=== PATIENT | male | born 1955 | race Caucasian/White ===

== ENCOUNTER 2016-10-28 12:58 | Inpatient (IN) | payer OTHER, SELFPAY ==
[~2016-10-28] VITALS: Ht 185.4 cm; Wt 171.0 kg
--- NOTE | ~2016-10-28 | H ---
[facility] [place] [address] HISTORY AND PHYSICAL Name: MICAH HENNESSY Room #: 170-2 ADM IN M.R.#: [id number] Admission: 10/28/16 Attend Phys: Andreia Bradford MD Discharge: Date of : 53 Report #: [id number] THIS REPORT FOR: //name// CC: Nitin Bradford PRIMARY CARE DOCTOR: Nitin Mcnally MD. CHIEF COMPLAINT: Shortness of breath. HISTORY OF PRESENT ILLNESS: The patient is a 61-year-old male with a history of severe morbid obesity, obstructive sleep apnea on CPAP, status post left nephrectomy, secondary to renal cell carcinoma with stage 4 chronic kidney disease, diabetes type 2 with triopathy, presented to the ER secondary to shortness of breath. He indicates that he has been dealing with this for about a month and a half now. He completed a course of Zithromax early on, when he first developed symptoms and then completed a course of Levaquin, about 2 weeks ago. He has had ongoing shortness of breath, especially dyspnea on exertion. He denies any overt chest pain. He denies any prior history of cardiac problems. He denies any significant fever or chills, but he does have night sweats. He also reports that he has not been able to bring out much sputum. He does not smoke. Workup here in the ER included chest x-ray that showed early pneumonia. I was asked to admit him for further management and care. He is currently satting in the low 90s on room air. He denies any other complaints. He does have chronic leg swelling and has had multiple venous Dopplers that are all negative. PAST MEDICAL HISTORY: As stated, obstructive sleep apnea on CPAP, severe morbid obesity, type 2 diabetes, history of renal cell carcinoma, status post left nephrectomy with chronic kidney disease stage 4, followed by Dr. Leavitt, hypertension, history of cor pulmonale. PAST SURGICAL HISTORY: He has had left nephrectomy, vasectomy, tonsillectomy, and foot surgery. SOCIAL HISTORY: He is . 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 Never smoked, drinks very infrequently. FAMILY HISTORY: Dad at 73 from diabetes, mom of uterine cancer. REVIEW OF SYSTEMS: A 14-point review of system was conducted. All negative except for above. CURRENT MEDICATIONS: Include K-Dur 20 mEq daily, Lipitor 40 mg daily, Tylenol p.r.n., sliding scale insulin. He is also on Humulin R 500, 25 during the day [address] [address] HISTORY AND PHYSICAL Name: MICAH HENNESSY Room #: 170-2 ADM IN .R.#: [id number] Admission: 10/28/16 Attend Phys: Andreia Bradford MD Discharge: Date of : 53 Report #: [id number] and 8 at night, torsemide 40 mg daily, Norvasc 10 mg daily, Coreg 25 mg b.i.d., fish oil 1 daily, Zestril 40 mg daily, Regranex, spironolactone 50 mg daily, Centrum Silver one daily, vitamin D 2000 units daily, and multivitamin daily. PHYSICAL EXAMINATION: VITAL SIGNS: Temperature of 98, pulse of 81, blood pressure of 151/86, O2 sat 93% on room air, when he initially came in, his pressure was 206/106, and he is 93% on room air. GENERAL: He is awake, alert, and answering questions appropriately, in no acute respiratory distress. HEENT: Normocephalic and atraumatic. Pupils are equal. NECK: Supple. CARDIOVASCULAR: Regular rate and rhythm. No murmurs. LUNGS: Clear to auscultation bilaterally. Decreased at the bases. ABDOMEN: Morbidly obese. Soft, nondistended, and nontender. EXTREMITIES: He has large legs, appreciable edema. LABORATORY AND TESTING: Chest x-ray showed a small soft tissue nodules, identified on prior CT, are not well demonstrated on plain films, atelectasis, and early pneumonia had developed in the bases. Cardiomegaly still noted. CBC showed no significant abnormalities with white count of 6.5, platelets 115. BMP currently pending. Previously, his creatinine was 3.2 in August of 2014, but it has been anywhere from the mid 1s-3s. ASSESSMENT AND PLAN: 1. Recurrent versus persistent pneumonia. We will get a CT of his chest. Continue ceftriaxone and Zithromax for now. Check sputum and blood cultures. Consider ID consult depending on the results of his CT. 2. Dyspnea on exertion, likely related to above. However, with his risk factors, we will also rule out cardiac etiology with enzymes, possibly an echo and a BMP. 3. Severe morbid obesity and obstructive sleep apnea. The patient would benefit from outpatient weight loss. We will continue CPAP. 4. Chronic kidney disease stage 4. We will avoid any nephrotoxins. Await the results of his BMP. 5. Thrombocytosis, likely secondary to his acute illness and possibly recent antibiotic use. We will monitor. 6. Diabetes. We will continue home meds and sliding scale insulin. 7. Prior history of renal cell carcinoma, status post nephrectomy. 8. Hypertension. Continue home meds with holding parameters. By: [id number] MD pal Corea
--- NOTE | ~2016-10-28 | 2DMMODE ---
[facility] [place] [address] 2 D/M-MODE ECHOCARDIOGRAM Name: MICAH HENNESSY Room #: 424-P [facility] IN [facility].#: [id number] Admission: 10/28/16 Attend Phys: Andreia Bradford MD Discharge: Date of : 53 Date of Service: 10/30/16 0945 Report #: [id number] THIS REPORT FOR: //name// APPROVED REPORT Study performed: 10/30/2016 08:23:03 EXAM: Comprehensive 2D, Doppler, and color-flow Echocardiogram Patient Location: Bedside Blood Pressure: 152/91 mmHg HR: 78 bpm Other Information Study Quality: Fair Indications Diabetes Hypertension/HDD Congestive Heart Failure Echo Enhancing Agent Indication: Endocardial border delineation Agent/Amount Used: Definity 2 cc Comments: Morbid obesity. Aortic Valve AoV Peak Trey.: 1.07 m/s AO Peak Gr.: 4.56 mmHg LV Max P.59 mmHg LV Max: 0.80 m/s Mitral Valve MV PHT: 43.85 ms MV E Max Trey.: 1.00 m/s E/A Ratio: 1.2 MV A Trey.: 0.85 m/s MV Decel. Time: 151.20 ms Pulmonary Valve PV Peak Trey.: 0.74 m/s PV Peak Gr.: 2.19 mmHg Left Ventricle The left ventricle appears normal size. There is global hypokinesis [facility] [address] [place] [address] 2 D/M-MODE ECHOCARDIOGRAM Name: MICAH HENNESSY Room #: 424-P ADM IN M.R.#: [id number] Admission: 10/28/16 Attend Phys: Andreia Bradford MD Discharge: Date of : 53 Date of Service: 10/30/16 0945 Report #: [id number] of the left ventricle.Definity was required. There is normal left ventricular wall thickness. Left ventricular systolic function is moderately decreased. No left ventricular thrombus noted. LVEF is 40% Grade III - reversible restrictive diastolic dysfunction. Right Ventricle Right ventricle is moderately dilated. Right ventricular systolic function is moderately reduced. Atria Left atrium is moderately dilated. The right atrium size is normal. Aortic Valve The aortic valve is not well visualized. No aortic regurgitation is present. There is no aortic valvular stenosis. Mitral Valve Mitral valve is not well visualized. Mild mitral regurgitation. Tricuspid Valve Tricuspid valve is not well visualized. There is no tricuspid valve regurgitation noted. Pulmonic Valve Pulmonic valve is not well visualized. There is no pulmonic valvular regurgitation. Great Vessels The aortic root is normal in size. IVC is not well visualized. Pericardium There is no pericardial effusion. <Conclusion> There is global hypokinesis of the left ventricle.However this study has limited endocardial definition LVEF is 40%. Grade III - reversible restrictive diastolic dysfunction. Right ventricular systolic function is moderately reduced. Right ventricle is moderately dilated. Left atrium is moderately dilated. No aortic regurgitation is present. [facility] [address] [place] [address] 2 D/M-MODE ECHOCARDIOGRAM Name: HENNESSYMICAH GABRIELLE Room #: 424-P [facility] IN ..#: [id number] Admission: 10/28/16 Attend Phys: Andreia Bradford MD Discharge: Date of : 53 Date of Service: 10/30/16944 Report #: [id number] There is no aortic valvular stenosis. Mild mitral regurgitation. <ELECTRONICALLY SIGNED> By: Truman Barney MD, FACC 10/30/1645 4 4 Truman Barney MD, FACC /INF
--- NOTE | ~2016-10-28 | EKG ---
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
--- NOTE | ~2016-10-28 | HC ---
[facility] [place] [address] CONSULTATION Name: MICAH HENNESSY Room #: 424-P [facility] IN M.R.#: [id number] Admission: 10/28/16 Attend Phys: Andreia Bradford MD Discharge: Date of : 53 Report #: [id number] THIS REPORT FOR: //name// CC: Nitin Bradford INFECTIOUS DISEASE CONSULTATION REASON FOR CONSULTATION: I was asked to evaluate concerning possible pneumonia. HISTORY OF PRESENT ILLNESS: The patient was a 61-year-old with morbid obesity, obstructive sleep apnea and a history of renal cell carcinoma, status post left nephrostomy in addition to diabetes. He has had progressive shortness of breath over the last 6 weeks. He had a trial of azithromycin, followed by Levaquin without improvement. No fever, chills or sweats. No cough or sputum production. Most of his dyspnea is on exertion with some orthopnea. He has chronic lower extremity edema. No chest pain. ALLERGIES: No known medication allergies. MEDICATIONS: As noted on his OCT. Now, he received one dose of doxycycline and one dose of ceftriaxone. PAST MEDICAL HISTORY: In addition to the above, chronic kidney disease, hypertension, cor pulmonale, foot surgery with an amputation of the distal toe on the right foot, vasectomy, tonsillectomy and left nephrectomy. FAMILY HISTORY: Noncontributory. 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 Nonsmoker. No significant alcohol intake. REVIEW OF SYSTEMS: As noted above, with no additions including no GI or complaints. PHYSICAL EXAMINATION: VITAL SIGNS: He is afebrile and hemodynamically stable. GENERAL: He is alert and cooperative and pleasant, with nasal CPAP in place. He has a peripheral IV. He is morbidly obese. HEENT: Unremarkable. NECK: Supple. No adenopathy. LUNGS: Decreased breath sounds bilaterally in the chest. HEART: Regular, without murmur. ABDOMEN: Obese, soft and nontender. No hepatosplenomegaly or mass. EXTREMITIES: With 2+ edema in the lower extremities, with changes of chronic venous stasis disease. [facility] [address] [place] [address] CONSULTATION Name: HENNESSYMICAHANTONETTE ANTHONY Room #: 424-P [facility] IN M.R.#: [id number] Admission: 10/28/16 Attend Phys: Andreia Bradford MD Discharge: Date of : 53 Report #: [id number] LABORATORY STUDIES: Sodium 144, potassium 3.8, bicarbonate 28 and creatinine 2.6. CPK 91. Troponin 0.26. BNP 12,000. Hemoglobin 14, white count 7.7, platelet count 130,000 with 65% segs and 18% lymphs. Blood cultures are negative. CT scan of the chest showed atelectasis in the right middle and lower lobe, small effusions, calcified granulomas and mild increase in his mediastinal nodes. IMPRESSION: A 61-year-old with obstructive sleep apnea, obesity and dyspnea, I suspect most likely cardiac in origin in addition to his obstructive sleep apnea. PLAN: We would recommend stopping his antibiotics and obtaining echocardiogram and cardiology followup. <ELECTRONICALLY SIGNED> By: Inocencio Zuniga MD 10/29/16 1625 1430 1449 Inocencio Zuniga MD /nt
--- NOTE | ~2016-10-28 | HC ---
[facility] [place] [address] CONSULTATION Name: MICAH HENNESSY Room #: 424- ADM IN M.R.#: [id number] Admission: 10/28/16 Attend Phys: Andreia Bradford MD Discharge: Date of : 53 Report #: [id number] THIS REPORT FOR: //name// CC: Nitin Bradford DATE OF SERVICE: 10/30/2016 DATE OF SERVICE: 10/30/2016 PRIMARY MANAGER TALENT: Gianna Brewer PRIMARY CARE DOCTOR: Nitin Mcnally M.D. CHIEF COMPLAINT: Shortness of breath. HISTORY OF PRESENT ILLNESS: The patient is a 61-year-old morbidly obese male with history of chronic kidney disease, presented with 1-2 weeks of increasing shortness of breath and weight gain, fluid retention. He has had a mild cough. He was admitted for both pneumonia and findings compatible with congestive heart failure. Clinically, he denies chest pain or pressure. He denies palpitations. He presents in sinus rhythm with a complete right bundle branch block. He has positive orthopnea and positive PND. He has severe sleep apnea and uses CPAP. He does not require oxygen during the daytime. He has no documented history of tobaccoism or severe obstructive lung disease. He has no fevers or chills, but has had a persistent cough over the last 2-3 weeks as noted above. He did have a CT scan of the chest, which demonstrated possible pneumonia and has been on antibiotics overnight. Overall with this and torsemide for diuresis, he has noted improvement in the shortness of breath. PAST MEDICAL HISTORY: He is followed by Dr. Brewer for what sounds like congestive heart failure. He has a history of chronic kidney disease, status post left-sided nephrectomy stage [address] Leavitt, hypertension, cor pulmonale, morbid obesity and sleep apnea. He is also a insulin requiring [facility] [address] [place] [address] CONSULTATION Name: MINOOMICAHANTONETTE ANTHONY Room #: 424-P [facility] IN [facility]#: [id number] Admission: 10/28/16 Attend Phys: Andreia Bradford MD Discharge: Date of : 53 Report #: [id number]. PAST SURGICAL HISTORY: Prior left nephrectomy, vasectomy, foot surgery, toe amputation for infection. SOCIAL HISTORY: He is . There is no tobacco or ethanol history. 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 FAMILY HISTORY: His father of complications, heart disease and diabetes. REVIEW OF SYSTEMS: GENERAL: Denies any fevers or chills. GASTROINTESTINAL: No nausea or vomiting, abdominal pain. CARDIOVASCULAR: No chest pain. Positive orthopnea, positive PND, positive dyspnea with exertion. Positive edema. No palpitations. NEUROLOGIC: No syncope or seizures. EYES: Denies any blurred vision or loss of vision. THROAT: Denies any dysphagia. SKIN: No rashes. Positive edema. EYES: Denies any blurry vision or loss of vision. HEMATOLOGIC: No anemia or bleeding disorders. ALLERGIES: No known drug allergies. PHYSICAL EXAMINATION: VITAL SIGNS: Blood pressure was 161/96. Pulse is in the 80s and in sinus rhythm and O2 sats 94% on room air. GENERAL: This is a morbidly obese white male, his weight 171 kilograms. In general, he is pleasant, in no apparent distress. EYES: EOMs intact. No facial asymmetry. Sclerae anicteric. NECK: Supple. No jugular venous distention. CARDIOVASCULAR: Regular heart tones are distant. ____ rub or gallop. LUNGS: There are bilateral expiratory wheezes. I cannot hear rales. ABDOMEN: Soft, morbidly obese, nontender. Positively distended. EXTREMITIES: There is 2+ pretibial edema to the knees. NEUROLOGIC: There are no focal deficits. SKIN: Warm and dry. PSYCHIATRIC: The patient has appropriate mood and affect. Electrocardiogram demonstrates sinus rhythm with a right bundle branch block, complete. LABORATORY DATA: Hemoglobin is 14.0, white blood count 7.7, platelet count 130,000. His troponin I is 0.26, 0.24 and 0.27. His NT-proBNP is 12,058, hemoglobin is 14.0. [address] [address] CONSULTATION Name: MICAH HENNESSY Room #: 424-P [facility] IN M.R.#: [id number] Admission: 10/28/16 Attend Phys: Andreia Bradford MD Discharge: Date of : 53 Report #: [id number] IMPRESSION: 1. Acute congestive heart failure. He does have an elevated BNP level with significant findings for at least right-sided heart failure, possibly left-sided heart failure. His chest x-ray and CTs are somewhat less definitive for systolic dysfunction. We will obtain records from Dr. Brewer. He will continue with diuretic therapy and we will adjust his blood pressure medications. 2. Abnormal troponin. I suspect this is related to his chronic kidney disease and possibly congestive heart failure. Seemingly he does not have findings for an acute coronary syndrome. We will follow this clinically. 3. Chronic kidney disease. We will monitor renal function closely while on present diuretic therapy. 4. Hypertension. He is already on a maximal dose of carvedilol. His creatinine is too high for an ARB at this point in time. I will add hydralazine. 5. Pneumonia. He is on broad spectrum antibiotics. INPATIENT MEDICATIONS: Which include ceftriaxone, doxycycline, carvedilol 25 mg p.o. b.i.d., atorvastatin 40 mg daily, torsemide 40 mg daily, fish oil, enoxaparin 40 mg subcutaneous daily, Norvasc 10 mg daily, Aldactone 50 mg daily, potassium chloride 20 mEq daily. By: 1539 0046 Truman Barney MD, [facility] /nt
[~2016-10-28 12:58] MED LIST: ALDACTONE50 MG PO; AMBEREN PO; AMLODIPINE BESY10 MG PO; ASPIRIN EC81 M1 PO; CARVEDILOL25 MG PO; CENTRUM SILVER1 EAC4 PO; CLORPRES 0.1-11 EACH PO; COLACE 100 MG100 MG PO; COMBIVENT INH; ENDUR-ACIN500 MG PO; FISH OIL 1,0001 EAC5 PO; GLUCOPHAGE XR500 MG PO; HYDRALAZINE 5050 MG PO; HYDROCHLOROTHIA25 M2 PO; INTUNIV3 MG PO; KEFLEX500 MG PO; LANTUS SC; LASIX 80 MG TAB80 M1 PO; LEVEMIR SUBQ; LIPITOR 20 MG T20 M1 PO; LISINOPRIL PO; MULTIVITAMINS PO; NOVOLOG100 UNIT/1 SQ; NOVOLOG100 UNIT/1 SUBQ; POTASSIUM20 PO; REGRANEX1 TUBE; SIMVASTATIN40 MG PO; SPIRONOLACTONE25 M1 PO; TAMSULOSIN HCL0.4 MG PO; TORSEMIDE20 MG; TORSEMIDE20 MG PO; TYLENOL325 MG PO; VIAGRA50 MG PO; VICODIN PO; VITAMIN D2000 UNIT PO; VITAMIN E400 UNIT PO; VITAMINC500 PO; ZESTRIL20 MG PO; ZESTRIL40 MG PO; ZINC CHELATE50 MG PO
[2016-10-28 12:59] VITALS: BP 206/106
[2016-10-28] MEDS ORDERED: LEVAQUIN 750 M750 MG PO (13:37)
[2016-10-28] MEDS ORDERED: K-DUR 20 MEQ T20 MEQ PO (13:37)
[2016-10-28] MEDS ORDERED: ATORVASTATIN CA40 MG PO (13:37)
[2016-10-28] MEDS ORDERED: HUMALOG100 UNIT/1 SUBQ (13:43)
[2016-10-28 14:28] LABS: ABSOLUTE NEUTROPHILS 4.6 thou/uL (1.4-8.2); BASOPHILS 0.8 % (0.0-2.0); EOSINOPHILS 4.5 % (0.0-3.0); HEMATOCRIT 43.1 % (42.0-52.0); HEMOGLOBIN 14.2 gm/dL (14.0-18.0); LYMPHOCYTES 14.8 % (24.0-44.0); MONOCYTES 8.8 % (1.0-8.0); PLATELET COUNT 115 thou/uL (150-400); POLYS 71.1 % (36.0-66.0); RBC 4.59 mil/uL (4.50-6.00); RDW 14.8 % (10.5-14.5); WBC 6.5 thou/uL (4.0-11.0)
[2016-10-28 14:30] LABS: MANUAL DIFF NO
[2016-10-28 16:17] LABS: CREATININE 2.5 mg/dL (0.6-1.3); TROPONIN-I 0.27 ng/mL (<0.04-0.07)
[2016-10-28] MEDS ORDERED: HUMULINU500 SUBQ (18:16)
[2016-10-28 18:24] VITALS: BP 158/111
[2016-10-28 20:46] LABS: TROPONIN-I 0.24 ng/mL (<0.04-0.07)
[2016-10-28 21:00] VITALS: BP 156/104
[2016-10-29 03:01] LABS: ABSOLUTE NEUTROPHILS 5.1 thou/uL (1.4-8.2); BASOPHILS 0.4 % (0.0-2.0); EOSINOPHILS 4.6 % (0.0-3.0); HEMATOCRIT 41.9 % (42.0-52.0); MCH 31.1 pg (26.0-34.0); MCHC 33.4 g/dL (28.0-37.0); MONOCYTES 11.2 % (1.0-8.0); PLATELET COUNT 130 thou/uL (150-400); POLYS 65.8 % (36.0-66.0); RDW 14.3 % (10.5-14.5); WBC 7.7 thou/uL (4.0-11.0)
[2016-10-29 03:18] LABS: CREATININE 2.6 mg/dL (0.6-1.3); POTASSIUM 3.8 mmol/L (3.5-5.1); TROPONIN-I 0.26 ng/mL (<0.04-0.07)
[2016-10-29 03:25] LABS: MANUAL DIFF NO
[2016-10-29 04:30] VITALS: BP 146/73; BP 158/66
[2016-10-29 08:26] VITALS: BP 161/96
[2016-10-29 16:20] VITALS: BP 143/84
[2016-10-29 20:00] VITALS: BP 159/98
[2016-10-30 04:00] VITALS: BP 141/74
[2016-10-30 07:38] VITALS: BP 152/91
[2016-10-30 12:16] LABS: CALCIUM 9.1 mg/dL (8.5-10.1); CREATININE 2.5 mg/dL (0.6-1.3); POTASSIUM 4.3 mmol/L (3.5-5.1)
[2016-10-30 15:22] VITALS: BP 154/96
[2016-10-30 19:51] VITALS: BP 120/79
[2016-10-31 04:04] VITALS: BP 128/71
[2016-10-31 07:33] VITALS: BP 143/71
[2016-10-31 16:27] VITALS: BP 123/68
[2016-10-31 20:00] VITALS: BP 145/89
[2016-11-01 04:00] VITALS: BP 140/70
[2016-11-01 08:05] VITALS: BP 158/85
[2016-11-01 10:36] LABS: HEMATOCRIT 44.9 % (42.0-52.0); MCHC 33.3 g/dL (28.0-37.0); RBC 4.83 mil/uL (4.50-6.00); RDW 14.7 % (10.5-14.5); WBC 5.9 thou/uL (4.0-11.0)
[2016-11-01 10:48] LABS: CALCIUM 9.2 mg/dL (8.5-10.1); CREATININE 2.8 mg/dL (0.6-1.3); POTASSIUM 4.1 mmol/L (3.5-5.1)
[2016-11-01 16:00] VITALS: BP 125/73
[2016-11-01 21:30] VITALS: BP 120/65
[2016-11-02 05:30] VITALS: BP 123/62
[2016-11-02 06:55] LABS: HEMATOCRIT 43.1 % (42.0-52.0); HEMOGLOBIN 14.4 gm/dL (14.0-18.0); MCH 31.3 pg (26.0-34.0); MCHC 33.5 g/dL (28.0-37.0); MCV 93.4 fL (80.0-100.0); RBC 4.61 mil/uL (4.50-6.00); RDW 14.8 % (10.5-14.5); WBC 5.4 thou/uL (4.0-11.0)
[2016-11-02 07:16] LABS: CALCIUM 9.2 mg/dL (8.5-10.1); CREATININE 2.8 mg/dL (0.6-1.3); POTASSIUM 3.9 mmol/L (3.5-5.1)
[2016-11-02 08:20] VITALS: BP 107/55
[2016-11-02 12:00] VITALS: BP 132/74
[2016-11-02 16:00] VITALS: BP 142/95
[2016-11-02 16:30] VITALS: BP 132/74
[2016-11-02 17:38] VITALS: BP 132/74
== END 2016-11-02 17:24 | disposition home or self-care (01) | DRG 291 ==
LOC: ER 12:58 → 4E 15:26 → EROBS 15:26 → 4E 18:01
PROVIDERS: Emergency Medicine; Family Medicine; Internal Medicine Cardiovascular Disease
DX: I13.0 Hypertensive heart and chronic kidney disease with heart failure and stage 1 through stage 4 chronic kidney disease, or unspecified chronic kidney disease (principal); I50.41 Acute combined systolic (congestive) and diastolic (congestive) heart failure; N18.4 Chronic kidney disease, stage 4 (severe); Z68.42 Body mass index [BMI] 45.0-49.9, adult; E78.5 Hyperlipidemia, unspecified; E66.01 Morbid (severe) obesity due to excess calories; D47.3 Essential (hemorrhagic) thrombocythemia; E11.22 Type 2 diabetes mellitus with diabetic chronic kidney disease; G47.33 Obstructive sleep apnea (adult) (pediatric); Z89.421 Acquired absence of other right toe(s); Z98.52 Vasectomy status; Z85.528 Personal history of other malignant neoplasm of kidney; Z90.5 Acquired absence of kidney; Z80.59 Family history of malignant neoplasm of other urinary tract organ; Z83.3 Family history of diabetes mellitus; Z82.49 Family history of ischemic heart disease and other diseases of the circulatory system; Z79.899 Other long term (current) drug therapy
CPT/HCPCS: 10183

== ENCOUNTER 2017-01-14 15:34 | Inpatient (IN) | payer OTHER, SELFPAY ==
[~2017-01-14] VITALS: Ht 175.3 cm; Wt 177.4 kg
--- NOTE | ~2017-01-14 | HC ---
[facility] [place] [address] CONSULTATION Name: MICAH HENNESSY Room #: 311-P [facility] IN M.R.#: [id number] Admission: 01/14/17 Attend Phys: Dora Perez MD Discharge: Date of : 53 Report #: [id number] THIS REPORT FOR: //name// CC: Nitin Perez DATE OF SERVICE: 01/15/2017 REASON FOR CONSULTATION: Edema in the setting of morbid obesity. HISTORY OF PRESENT ILLNESS: This 61-year-old male is followed by Dr. Rodrigo Leavitt in our office. I have not previously seen him. He has a complicated medical history which includes a previous nephrectomy in 2010 for renal cell carcinoma. His left kidney was removed at that time and he was found to have contained disease. He did not receive any chemotherapy or followup radiation therapy to his knowledge. The patient has longstanding diabetes mellitus and hypertension. He has been followed regularly by Dr. Leavitt in the office for his chronic kidney disease. The patient reports that he has had increasing fluid retention and shortness of breath. He has known obstructive sleep apnea and uses CPAP regularly. He denies fevers, chills, sweats or other constitutional complaints. PAST MEDICAL HISTORY: Otherwise remarkable for hypertension, cardiomyopathy, diabetes mellitus. MEDICATIONS ON ADMISSION: Include potassium, Lipitor, Humulin, carvedilol, torsemide, fish oil, Zestril, Aldactone, Centrum Silver and vitamin D. FAMILY HISTORY: Remarkable for diabetes mellitus and hypertension. PERSONAL AND SOCIAL HISTORY: The patient does not smoke, use alcohol or have any history of substance abuse. He is able to maintain his mobility at home with his . REVIEW OF SYSTEMS: Remarkable as described in the history of present illness. PHYSICAL EXAMINATION: GENERAL: Reveals a morbidly obese male in no acute distress. VITAL SIGNS: Blood pressure 154/65, temperature 98.1, pulse 73, respirations 21. SKIN: Warm and dry. There is 2+ edema of the lower extremities bilaterally. Edema extends to the level of the thighs. There is no gross leakage. There is no evidence of cellulitis. HEENT: The head is normocephalic and atraumatic. The sclerae are white and [facility] [address] [place] [address] CONSULTATION Name: MICAH HENNESSY Room #: 311-P [facility] IN M.R.#: [id number] Admission: 01/14/17 Attend Phys: Dora Perez MD Discharge: Date of : 53 Report #: [id number] conjunctivae are not injected. The pharynx is benign. NECK: Supple. LUNGS: [place] are grossly clear to percussion and auscultation, though breath sounds are distant. HEART: Sounds are difficult to appreciate due to obesity. There is no gross murmur. ABDOMEN: Markedly obese, soft and nontender. NEUROLOGIC: Reveals the patient to be alert and cooperative with a nonfocal exam. LABORATORY STUDIES: Available at the time of consultation include sodium 146, potassium 3.5, chloride 104, CO2 33, BUN 35, creatinine 2.6, glucose 146. White blood cell count 6600, hemoglobin 14.9, hematocrit 44.7. No urinalysis is available. ASSESSMENT: 1. Morbid obesity in this patient with diabetes mellitus, solitary kidney status, chronic kidney disease and increasing edema. I am primarily worried about the development of nephrotic syndrome and anasarca related to his progressive diabetic nephropathy and a single kidney situation. We will obtain renal screening studies including urinalysis, urine for protein creatinine and serum albumin level. We will continue current diuretic regimen. 2. Obstructive sleep apnea with cor pulmonale. 3. Morbid obesity. 4. Anemia of chronic kidney disease. PLAN: The patient will need care for renal followup and balancing of his diuretic regimen in view of his limited renal reserve. I will confer with Dr. Leavitt's office records and await further laboratory test again as described. Please see orders. <ELECTRONICALLY SIGNED> By: Ruddy Guaman MD 01/19/17 0641 1512 1821 Ruddy Guaman MD /nt
--- NOTE | ~2017-01-14 | HC ---
[facility] [place] [address] CONSULTATION Name: MICAH HENNESSY Room #: 311-P ADM IN M.R.#: [id number] Admission: 01/14/17 Attend Phys: Dora Perez MD Discharge: Date of : 53 Report #: [id number] THIS REPORT FOR: //name// CC: Nitin Perez Patient's Chart DATE OF SERVICE: 01/15/2017 HISTORY OF PRESENT ILLNESS: The patient is a 61-year-old white male who I was asked to see in the hospital today because of all his edema. The patient has had multiple hospitalizations here at [facility]. He actually saw Dr. Bowling with the cardiology service back in 2010 with fluid overload. The patient has a history of morbid obesity and sleep apnea. Echocardiogram showed left ventricular systolic function at the lower limits normal. He did have evidence of moderate pulmonary hypertension. He was actually admitted here to [facility] in October of this year with shortness of breath. At that time, he was seen by Dr. Barney. He is felt to have diastolic heart failure. He was just discharged 2 months ago. His echocardiogram in October showed an ejection fraction estimated at 40% with dilated right ventricle, left atrium, mild aortic insufficiency, but no significant tricuspid regurgitation. The patient notes that he is not very active because of his large size. He is 6 feet 1 inches and weighs over 400 pounds. Recently, he has had increasing shortness of breath and edema. He was brought to the hospital yesterday and admitted. I was asked to see him for further evaluation and treatment. He denies any history of myocardial infarction or chest pain. He has had no fever or cough. He has occasional flutter in his chest, but no syncope. PAST MEDICAL HISTORY: Significant for amputation of toe because of nonhealing ulcer. He apparently had malignancy of his kidney removed in the past. He has a history of hypertension and diabetes. MEDICATIONS: Consists of potassium, Lipitor, insulin, carvedilol, torsemide, lisinopril, spironolactone. ALLERGIES: He has no known drug allergies. FAMILY HISTORY: Negative for heart disease. SOCIAL HISTORY: He is . He lives with his in [place], [place]. 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 No history of smoking or alcohol abuse. REVIEW OF SYSTEMS: He has had no history of stroke. He does have sleep apnea, [address] [address] CONSULTATION Name: MICAH HENNESSY Room #: 311-P [facility] IN ..#: [id number] Admission: 01/14/17 Attend Phys: Dora Perez MD Discharge: Date of : 53 Report #: [id number] uses CPAP. No history of peptic ulcer disease, liver disease. He has chronic kidney disease. He has renal cell carcinoma. PHYSICAL EXAMINATION: GENERAL: Revealed an obese, middle-aged male lying in bed. He appeared in no distress. VITAL SIGNS: He had a blood pressure of 150/90, pulse 70, he was afebrile. HEENT: He was anicteric. Conjunctivae are pink. Mucous membranes moist. NECK: Neck vein could not be assessed due to obesity. CHEST: Revealed decreased breath sounds bilaterally. CARDIOVASCULAR: Distant heart sounds. No significant murmur. ABDOMEN: Obese. EXTREMITIES: Had pitting edema up to the mid tibial area. Dorsalis pedis pulse could not be palpated. SKIN: Cool and dry. NEUROLOGIC: Nonfocal. LYMPH: No adenopathy. MUSCULOSKELETAL: No joint effusions. PSYCHIATRIC: Mood is appropriate. RADIOLOGICAL DATA: His ECG when he arrived yesterday afternoon showed a sinus rhythm, first degree AV block, left axis deviation with right bundle branch block. His workup included sodium 146, BUN was 35 and in the past it has been as high as 52. His creatinine was 2.6, in the past it has been as high as 2.9, glucose is 217. His troponin is 0.45, BNP 7151. White blood cell count 6.6, hemoglobin 14.9. He had a chest x-ray in the emergency room yesterday that showed cardiomegaly, no pulmonary edema. Venous duplex scan of his legs showed no DVT. IMPRESSION AND RECOMMENDATIONS: 1. Acute on chronic diastolic heart failure. Recommend IV Lasix. 2. Morbid obesity. 3. Core pulmonale. 4. Peripheral arterial disease with previous amputation. 5. Chronic kidney disease. <ELECTRONICALLY SIGNED> By: Edmundo Vazquez MD, [facility] 01/16/17 1221 [id number] Edmundo Vazquez MD, FACC /nt
--- NOTE | ~2017-01-14 | EKG ---
[address] [place] [address] ELECTROCARDIOGRAM REPORT Name: MICAH HENNESSY GABRIELLE Room #: 311-P ADM IN M.R.#: [id number] Admission: 01/14/17 Attend Phys: Dora Perez MD Discharge: Date of : 53 Report #: [id number] THIS REPORT FOR: //name// [facility] ED Test Date: 2017-01-14 Test Time: 16:04:55 Pat Name: MICAH HENNESSY Department: Room: [facility] Gender: M [employer]: Dominic YUAN : 1955 Requested By: Mini Camara Order Number: [id number] MD: Abraham Ambriz Measurements Intervals Range Rate: 79 P: 72 AL: 225 QRS: -70 QRSD: 161 T: 102 QT: 462 QTc: 530 Interpretive Statements Sinus rhythm Prolonged AL interval IVCD, consider atypical RBBB Abnormal T, consider ischemia, lateral leads Compared to ECG 10/28/2016 13:55:26 No significant change was found Electronically Signed On 01-16-2017 7:52:01 CDT by Abraham Ambriz [email or web address] <ELECTRONICALLY SIGNED> By: Abraham Ambriz MD, [facility] 01/16/17 0752 1604 1604 Abraham Ambriz MD, [facility] /EPI
[~2017-01-14 15:34] MED LIST changes: +ATORVASTATIN CA40 MG PO; +HUMALOG100 UNIT/1 SUBQ; +HUMULINU500 SUBQ; +K-DUR 20 MEQ T20 MEQ PO; +LEVAQUIN 750 M750 MG PO
[2017-01-14 15:55] VITALS: BP 130/82
[2017-01-14 16:52] LABS: ABSOLUTE NEUTROPHILS 4.9 thou/uL (1.4-8.2); BASOPHILS 0.4 % (0.0-2.0); EOSINOPHILS 4.4 % (0.0-3.0); HEMATOCRIT 44.7 % (42.0-52.0); HEMOGLOBIN 14.9 gm/dL (14.0-18.0); LYMPHOCYTES 11.1 % (24.0-44.0); MCH 31.1 pg (26.0-34.0); MCHC 33.4 g/dL (28.0-37.0); MCV 93.3 fL (80.0-100.0); MONOCYTES 10.7 % (1.0-8.0); PLATELET COUNT 140 thou/uL (150-400); POLYS 73.4 % (36.0-66.0); RBC 4.79 mil/uL (4.50-6.00); WBC 6.6 thou/uL (4.0-11.0)
[2017-01-14 16:55] LABS: MANUAL DIFF NO
[2017-01-14 17:11] LABS: CALCIUM 8.7 mg/dL (8.5-10.1); CREATININE 2.5 mg/dL (0.7-1.3); POTASSIUM 3.8 mmol/L (3.5-5.1)
[2017-01-14 18:38] VITALS: BP 143/79
[2017-01-14 19:00] VITALS: BP 159/100
[2017-01-15 00:15] VITALS: BP 146/90
[2017-01-15 01:33] LABS: CALCIUM 9.1 mg/dL (8.5-10.1); CREATININE 2.6 mg/dL (0.7-1.3); POTASSIUM 3.5 mmol/L (3.5-5.1)
[2017-01-15 04:30] VITALS: BP 163/84
[2017-01-15 08:03] VITALS: BP 154/65
[2017-01-15 16:27] VITALS: BP 180/92
[2017-01-15 19:20] LABS: URINE BILIRUBIN NEGATIVE (Negative); URINE BLOOD NEGATIVE (Negative); URINE COLOR YELLOW; URINE GLUCOSE-RANDOM* NEGATIVE (Negative); URINE KETONES NEGATIVE (Negative); URINE NITRITE NEGATIVE (Negative); URINE PROTEIN (DIPSTICK) NEGATIVE (Negative); URINE SPECIFIC GRAVITY 1.015 (1.003-1.035); URINE UROBILINOGEN 0.2 E.U./dl (0.2-1.0)
[2017-01-15 20:10] VITALS: BP 153/89
[2017-01-16 03:53] LABS: HEMATOCRIT 41.6 % (42.0-52.0); HEMOGLOBIN 14.1 gm/dL (14.0-18.0); MCH 31.7 pg (26.0-34.0); MCHC 33.9 g/dL (28.0-37.0); MCV 93.5 fL (80.0-100.0); RBC 4.45 mil/uL (4.50-6.00); RDW 15.2 % (10.5-14.5); WBC 8.5 thou/uL (4.0-11.0)
[2017-01-16 03:57] LABS: ALBUMIN 2.9 g/dL (3.4-5.0); CALCIUM 8.7 mg/dL (8.5-10.1); CREATININE 2.8 mg/dL (0.7-1.3); MAGNESIUM 2.5 mg/dL (1.8-2.4); PHOSPHORUS 5.4 mg/dL (2.5-4.9); POTASSIUM 3.7 mmol/L (3.5-5.1)
[2017-01-16 04:45] VITALS: BP 144/79
[2017-01-16 09:45] VITALS: BP 163/76
[2017-01-16 17:25] LABS: ABG SAMPLE TYPE ARTERIAL; BE(vivo) 3.8 mmol/L (-2 to +3); HCO3 28.4 mmol/L (22.0-26.0); LACTATE 1.59 mmol/L (0.5-2.0); O2(CT) 20.3 mL/dL (15.0-23.0); O2Hb 94.9 % (92.0-98.0); PCO2 42.8 mmHg (35.0-45.0); PO2 86.9 mmHg (80.0-100.0); STICK SITE R.RADIAL; sO2 96.9 % (92.0-98.0); tCO2 29.7 mmol/L (24.0-30.0)
[2017-01-16 17:26] LABS: VDS NASAL CPAP OF 14CM cc
[2017-01-16 17:27] LABS: ABG COMMENT AND 3LPM O2 BLEED IN
[2017-01-16 17:51] VITALS: BP 141/73
[2017-01-16 19:49] VITALS: BP 130/76
[2017-01-17 03:56] VITALS: BP 117/61
[2017-01-17 05:49] LABS: HEMATOCRIT 43.7 % (42.0-52.0); HEMOGLOBIN 14.2 gm/dL (14.0-18.0); MCH 30.6 pg (26.0-34.0); MCHC 32.5 g/dL (28.0-37.0); MCV 94.4 fL (80.0-100.0); RBC 4.63 mil/uL (4.50-6.00); RDW 15.6 % (10.5-14.5); WBC 6.1 thou/uL (4.0-11.0)
[2017-01-17 05:59] LABS: CALCIUM 8.6 mg/dL (8.5-10.1); CREATININE 2.7 mg/dL (0.7-1.3); PHOSPHORUS 4.9 mg/dL (2.5-4.9); POTASSIUM 4.2 mmol/L (3.5-5.1)
[2017-01-17 09:03] VITALS: BP 138/70
[2017-01-17 17:12] VITALS: BP 136/75
[2017-01-17 20:07] VITALS: BP 120/71
[2017-01-18 03:59] VITALS: BP 141/67
[2017-01-18 05:01] LABS: ALBUMIN 3.2 g/dL (3.4-5.0); CALCIUM 8.9 mg/dL (8.5-10.1); CREATININE 2.7 mg/dL (0.7-1.3); PHOSPHORUS 4.7 mg/dL (2.5-4.9); POTASSIUM 3.7 mmol/L (3.5-5.1)
[2017-01-18 07:36] VITALS: BP 167/81
[2017-01-18 11:06] VITALS: BP 171/80
[2017-01-18 16:29] VITALS: BP 173/77
[2017-01-18 16:49] VITALS: BP 159/90
[2017-01-18 19:42] VITALS: BP 159/89
[2017-01-19 04:13] LABS: HEMATOCRIT 42.4 % (42.0-52.0); HEMOGLOBIN 14.1 gm/dL (14.0-18.0); MCH 31.3 pg (26.0-34.0); MCHC 33.3 g/dL (28.0-37.0); MCV 94.1 fL (80.0-100.0); PLATELET COUNT 104 thou/uL (150-400); RBC 4.51 mil/uL (4.50-6.00); RDW 14.9 % (10.5-14.5); WBC 6.6 thou/uL (4.0-11.0)
[2017-01-19 04:14] LABS: MANUAL DIFF YES
[2017-01-19 04:17] VITALS: BP 145/71
[2017-01-19 04:22] LABS: CALCIUM 8.9 mg/dL (8.5-10.1); CREATININE 2.6 mg/dL (0.7-1.3); PHOSPHORUS 4.1 mg/dL (2.5-4.9); POTASSIUM 3.8 mmol/L (3.5-5.1)
[2017-01-19 04:37] LABS: ABSOLUTE NEUTROPHILS 4.1 thou/uL (1.4-8.2); NUCLEATED RBCS 1 /100WBC; TOTAL CELL COUNT 100
[2017-01-19 04:38] LABS: LARGE PLATELETS OCCASIONAL
[2017-01-19 08:00] VITALS: BP 182/96
[2017-01-19 11:38] VITALS: BP 139/82
[2017-01-19 17:00] VITALS: BP 138/81
[2017-01-19 20:15] VITALS: BP 120/62
[2017-01-20 04:15] VITALS: BP 130/66
[2017-01-20 06:09] LABS: HEMATOCRIT 42.3 % (42.0-52.0); HEMOGLOBIN 13.9 gm/dL (14.0-18.0); MCHC 32.9 g/dL (28.0-37.0); MCV 94.1 fL (80.0-100.0); RBC 4.49 mil/uL (4.50-6.00); RDW 15.3 % (10.5-14.5); WBC 6.2 thou/uL (4.0-11.0)
[2017-01-20 06:19] LABS: CALCIUM 8.8 mg/dL (8.5-10.1); CREATININE 2.7 mg/dL (0.7-1.3)
[2017-01-20 07:19] VITALS: BP 143/80
[2017-01-20 15:17] VITALS: BP 140/86
[2017-01-20 19:47] VITALS: BP 132/75
[2017-01-21 04:28] VITALS: BP 127/72
[2017-01-21 04:46] LABS: HEMATOCRIT 44.6 % (42.0-52.0); HEMOGLOBIN 15.1 gm/dL (14.0-18.0); MCH 31.6 pg (26.0-34.0); MCHC 33.9 g/dL (28.0-37.0); MCV 93.4 fL (80.0-100.0); RBC 4.77 mil/uL (4.50-6.00); RDW 14.9 % (10.5-14.5); WBC 7.5 thou/uL (4.0-11.0)
[2017-01-21 04:52] LABS: CALCIUM 9.2 mg/dL (8.5-10.1); CREATININE 2.8 mg/dL (0.7-1.3); POTASSIUM 3.8 mmol/L (3.5-5.1)
[2017-01-21 17:18] VITALS: BP 115/61
[2017-01-21 19:29] VITALS: BP 134/49
[2017-01-22 03:26] VITALS: BP 125/68
[2017-01-22 06:28] LABS: CALCIUM 9.2 mg/dL (8.5-10.1); CREATININE 2.9 mg/dL (0.7-1.3); HEMATOCRIT 42.4 % (42.0-52.0); HEMOGLOBIN 14.1 gm/dL (14.0-18.0); MAGNESIUM 2.3 mg/dL (1.8-2.4); MCH 31.1 pg (26.0-34.0); MCHC 33.2 g/dL (28.0-37.0); MCV 93.4 fL (80.0-100.0); PHOSPHORUS 4.6 mg/dL (2.5-4.9); POTASSIUM 4.2 mmol/L (3.5-5.1); RBC 4.54 mil/uL (4.50-6.00); RDW 14.9 % (10.5-14.5)
[2017-01-22 07:20] VITALS: BP 147/81
[2017-01-22 16:30] VITALS: BP 127/61
[2017-01-22 20:00] VITALS: BP 114/46
[2017-01-23 04:00] VITALS: BP 130/66
[2017-01-23 04:52] LABS: ALBUMIN 3.2 g/dL (3.4-5.0); CALCIUM 9.3 mg/dL (8.5-10.1); PHOSPHORUS 4.7 mg/dL (2.5-4.9); POTASSIUM 3.8 mmol/L (3.5-5.1)
[2017-01-23 07:44] LABS: ABG SAMPLE TYPE ARTERIAL; BE(vivo) 11.1 mmol/L (-2 to +3); HCO3 36.8 mmol/L (22.0-26.0); LACTATE 2.23 mmol/L (0.5-2.0); O2(CT) 19.2 mL/dL (15.0-23.0); O2Hb 86.8 % (92.0-98.0); PCO2 51.3 mmHg (35.0-45.0); PO2 53.9 mmHg (80.0-100.0); pH 7.474 (7.360-7.450); sO2 89.5 % (92.0-98.0); tCO2 38.4 mmol/L (24.0-30.0)
[2017-01-23 07:45] LABS: STICK SITE L.RADIAL
[2017-01-23 08:26] VITALS: BP 122/64
[2017-01-23 18:05] VITALS: BP 132/68
[2017-01-23 20:20] VITALS: BP 125/56
[2017-01-24 03:27] LABS: HEMATOCRIT 42.7 % (42.0-52.0); HEMOGLOBIN 14.5 gm/dL (14.0-18.0); MCH 31.3 pg (26.0-34.0); MCHC 33.9 g/dL (28.0-37.0); MCV 92.5 fL (80.0-100.0); RBC 4.61 mil/uL (4.50-6.00); RDW 14.8 % (10.5-14.5); WBC 5.5 thou/uL (4.0-11.0)
[2017-01-24 03:42] LABS: CALCIUM 9.4 mg/dL (8.5-10.1); CREATININE 3.1 mg/dL (0.7-1.3); POTASSIUM 4.2 mmol/L (3.5-5.1)
[2017-01-24 04:30] VITALS: BP 117/52
[2017-01-24] MEDS ORDERED: METOLAZONE 2.52.5 MG PO (14:09)
[2017-01-24 14:29] VITALS: BP 113/64
[2017-01-24 15:25] VITALS: BP 113/64
== END 2017-01-24 15:20 | disposition home or self-care (01) | DRG 291 ==
LOC: ER 15:34 → 3N 18:00 → EROBS 18:00 → 3N 18:49
PROVIDERS: Emergency Medicine; Hospitalist; Internal Medicine Cardiovascular Disease; Internal Medicine Endocrinology, Diabetes & Metabolism; Internal Medicine Nephrology; Internal Medicine Pulmonary Disease; Nurse Practitioner
DX: I13.0 Hypertensive heart and chronic kidney disease with heart failure and stage 1 through stage 4 chronic kidney disease, or unspecified chronic kidney disease (principal); I50.33 Acute on chronic diastolic (congestive) heart failure; J96.01 Acute respiratory failure with hypoxia; N18.4 Chronic kidney disease, stage 4 (severe); E87.0 Hyperosmolality and hypernatremia; Z68.43 Body mass index [BMI] 50.0-59.9, adult; I42.9 Cardiomyopathy, unspecified; D63.8 Anemia in other chronic diseases classified elsewhere; E11.22 Type 2 diabetes mellitus with diabetic chronic kidney disease; I27.81 Cor pulmonale (chronic); E78.00 Pure hypercholesterolemia, unspecified; E66.01 Morbid (severe) obesity due to excess calories; E11.51 Type 2 diabetes mellitus with diabetic peripheral angiopathy without gangrene; G47.33 Obstructive sleep apnea (adult) (pediatric); D69.6 Thrombocytopenia, unspecified; E78.5 Hyperlipidemia, unspecified; I27.2 Other secondary pulmonary hypertension; Z90.5 Acquired absence of kidney; Z82.49 Family history of ischemic heart disease and other diseases of the circulatory system; Z83.3 Family history of diabetes mellitus; Z79.899 Other long term (current) drug therapy; Z80.9 Family history of malignant neoplasm, unspecified
CPT/HCPCS: 10096

== ENCOUNTER → 2019-08-16 | Outpatient (CLI) | payer OTHER, SELFPAY ==
[~2019-08-16] MED LIST changes: +METOLAZONE 2.52.5 MG PO
== END ==
LOC: HYPER 08:54
DX: E11.622 Type 2 diabetes mellitus with other skin ulcer (principal); I87.331 Chronic venous hypertension (idiopathic) with ulcer and inflammation of right lower extremity; L97.812 Non-pressure chronic ulcer of other part of right lower leg with fat layer exposed; S90.415A Abrasion, left lesser toe(s), initial encounter; S80.11XD Contusion of right lower leg, subsequent encounter; E11.22 Type 2 diabetes mellitus with diabetic chronic kidney disease; I13.0 Hypertensive heart and chronic kidney disease with heart failure and stage 1 through stage 4 chronic kidney disease, or unspecified chronic kidney disease; N18.4 Chronic kidney disease, stage 4 (severe); I50.9 Heart failure, unspecified; E11.51 Type 2 diabetes mellitus with diabetic peripheral angiopathy without gangrene; E11.40 Type 2 diabetes mellitus with diabetic neuropathy, unspecified; E66.01 Morbid (severe) obesity due to excess calories; E78.5 Hyperlipidemia, unspecified; G47.33 Obstructive sleep apnea (adult) (pediatric); I87.2 Venous insufficiency (chronic) (peripheral); Z68.43 Body mass index [BMI] 50.0-59.9, adult; Z85.528 Personal history of other malignant neoplasm of kidney; Z79.4 Long term (current) use of insulin; Z95.0 Presence of cardiac pacemaker; Z89.429 Acquired absence of other toe(s), unspecified side; Z98.41 Cataract extraction status, right eye; Z98.42 Cataract extraction status, left eye; X58.XXXA Exposure to other specified factors, initial encounter; Y93.89 Activity, other specified; Y92.89 Other specified places as the place of occurrence of the external cause; Y99.8 Other external cause status

== ENCOUNTER → 2019-08-23 | Outpatient (CLI) | payer OTHER, SELFPAY | LOC: HYPER 12:57 | DX: I87.331 Chronic venous hypertension (idiopathic) with ulcer and inflammation of right lower extremity (principal); E11.622 Type 2 diabetes mellitus with other skin ulcer; L97.812 Non-pressure chronic ulcer of other part of right lower leg with fat layer exposed; I87.2 Venous insufficiency (chronic) (peripheral); E11.51 Type 2 diabetes mellitus with diabetic peripheral angiopathy without gangrene; E11.40 Type 2 diabetes mellitus with diabetic neuropathy, unspecified; E11.22 Type 2 diabetes mellitus with diabetic chronic kidney disease; I12.9 Hypertensive chronic kidney disease with stage 1 through stage 4 chronic kidney disease, or unspecified chronic kidney disease; I50.9 Heart failure, unspecified; N18.4 Chronic kidney disease, stage 4 (severe); E78.5 Hyperlipidemia, unspecified; M19.90 Unspecified osteoarthritis, unspecified site; E66.01 Morbid (severe) obesity due to excess calories; Z68.43 Body mass index [BMI] 50.0-59.9, adult; Z85.528 Personal history of other malignant neoplasm of kidney; Z79.4 Long term (current) use of insulin; Z79.82 Long term (current) use of aspirin; Z90.5 Acquired absence of kidney ==

== ENCOUNTER → 2019-09-07 | Outpatient (CLI) | payer OTHER | LOC: HYPER 11:35 | DX: I87.331 Chronic venous hypertension (idiopathic) with ulcer and inflammation of right lower extremity (principal); E11.622 Type 2 diabetes mellitus with other skin ulcer; L97.812 Non-pressure chronic ulcer of other part of right lower leg with fat layer exposed; E11.621 Type 2 diabetes mellitus with foot ulcer; L97.511 Non-pressure chronic ulcer of other part of right foot limited to breakdown of skin; S91.115A Laceration without foreign body of left lesser toe(s) without damage to nail, initial encounter; I87.2 Venous insufficiency (chronic) (peripheral); E11.51 Type 2 diabetes mellitus with diabetic peripheral angiopathy without gangrene; E11.40 Type 2 diabetes mellitus with diabetic neuropathy, unspecified; E11.22 Type 2 diabetes mellitus with diabetic chronic kidney disease; I13.0 Hypertensive heart and chronic kidney disease with heart failure and stage 1 through stage 4 chronic kidney disease, or unspecified chronic kidney disease; I50.9 Heart failure, unspecified; N18.4 Chronic kidney disease, stage 4 (severe); E78.5 Hyperlipidemia, unspecified; G47.33 Obstructive sleep apnea (adult) (pediatric); E66.01 Morbid (severe) obesity due to excess calories; Z68.43 Body mass index [BMI] 50.0-59.9, adult; Z85.528 Personal history of other malignant neoplasm of kidney; Z79.4 Long term (current) use of insulin; Z98.41 Cataract extraction status, right eye; Z98.42 Cataract extraction status, left eye; Z79.82 Long term (current) use of aspirin; X58.XXXA Exposure to other specified factors, initial encounter; Y93.89 Activity, other specified; Y92.89 Other specified places as the place of occurrence of the external cause; Y99.8 Other external cause status ==

== ENCOUNTER → 2019-09-14 | Outpatient (CLI) | payer OTHER | LOC: HYPER 08:19 | DX: I87.331 Chronic venous hypertension (idiopathic) with ulcer and inflammation of right lower extremity (principal); E11.622 Type 2 diabetes mellitus with other skin ulcer; L97.812 Non-pressure chronic ulcer of other part of right lower leg with fat layer exposed; E11.621 Type 2 diabetes mellitus with foot ulcer; L97.511 Non-pressure chronic ulcer of other part of right foot limited to breakdown of skin; E11.51 Type 2 diabetes mellitus with diabetic peripheral angiopathy without gangrene; E11.40 Type 2 diabetes mellitus with diabetic neuropathy, unspecified; S91.12 Laceration with foreign body of toe without damage to nail; E11.22 Type 2 diabetes mellitus with diabetic chronic kidney disease; I13.0 Hypertensive heart and chronic kidney disease with heart failure and stage 1 through stage 4 chronic kidney disease, or unspecified chronic kidney disease; I50.9 Heart failure, unspecified; N18.4 Chronic kidney disease, stage 4 (severe); E78.5 Hyperlipidemia, unspecified; G47.33 Obstructive sleep apnea (adult) (pediatric); E66.01 Morbid (severe) obesity due to excess calories; Z68.43 Body mass index [BMI] 50.0-59.9, adult; Z85.528 Personal history of other malignant neoplasm of kidney; Z79.4 Long term (current) use of insulin; Z79.82 Long term (current) use of aspirin; Z90.5 Acquired absence of kidney; Z89.429 Acquired absence of other toe(s), unspecified side; X58.XXXD Exposure to other specified factors, subsequent encounter ==

== ENCOUNTER → 2019-09-27 | Outpatient (CLI) | payer OTHER | LOC: HYPER 13:40 | DX: I87.331 Chronic venous hypertension (idiopathic) with ulcer and inflammation of right lower extremity (principal); E11.622 Type 2 diabetes mellitus with other skin ulcer; L97.812 Non-pressure chronic ulcer of other part of right lower leg with fat layer exposed; E11.621 Type 2 diabetes mellitus with foot ulcer; L97.511 Non-pressure chronic ulcer of other part of right foot limited to breakdown of skin; S91.115D Laceration without foreign body of left lesser toe(s) without damage to nail, subsequent encounter; E11.51 Type 2 diabetes mellitus with diabetic peripheral angiopathy without gangrene; E11.40 Type 2 diabetes mellitus with diabetic neuropathy, unspecified; E11.22 Type 2 diabetes mellitus with diabetic chronic kidney disease; I12.9 Hypertensive chronic kidney disease with stage 1 through stage 4 chronic kidney disease, or unspecified chronic kidney disease; N18.4 Chronic kidney disease, stage 4 (severe); E78.5 Hyperlipidemia, unspecified; G47.33 Obstructive sleep apnea (adult) (pediatric); E66.01 Morbid (severe) obesity due to excess calories; Z68.43 Body mass index [BMI] 50.0-59.9, adult; Z85.528 Personal history of other malignant neoplasm of kidney; Z79.4 Long term (current) use of insulin; Z79.82 Long term (current) use of aspirin; Z90.5 Acquired absence of kidney; X58.XXXD Exposure to other specified factors, subsequent encounter ==

== ENCOUNTER → 2019-10-04 | Outpatient (CLI) | payer OTHER | LOC: HYPER 13:29 | DX: I87.331 Chronic venous hypertension (idiopathic) with ulcer and inflammation of right lower extremity (principal); E11.622 Type 2 diabetes mellitus with other skin ulcer; L97.812 Non-pressure chronic ulcer of other part of right lower leg with fat layer exposed; E11.40 Type 2 diabetes mellitus with diabetic neuropathy, unspecified; E11.51 Type 2 diabetes mellitus with diabetic peripheral angiopathy without gangrene; E11.22 Type 2 diabetes mellitus with diabetic chronic kidney disease; I13.0 Hypertensive heart and chronic kidney disease with heart failure and stage 1 through stage 4 chronic kidney disease, or unspecified chronic kidney disease; I50.9 Heart failure, unspecified; N18.4 Chronic kidney disease, stage 4 (severe); E78.5 Hyperlipidemia, unspecified; G47.33 Obstructive sleep apnea (adult) (pediatric); E66.01 Morbid (severe) obesity due to excess calories; Z68.43 Body mass index [BMI] 50.0-59.9, adult; Z85.528 Personal history of other malignant neoplasm of kidney; Z79.4 Long term (current) use of insulin; Z79.82 Long term (current) use of aspirin ==

== ENCOUNTER → 2019-10-11 | Outpatient (CLI) | payer OTHER | LOC: HYPER 13:08 | DX: I87.331 Chronic venous hypertension (idiopathic) with ulcer and inflammation of right lower extremity (principal); E11.622 Type 2 diabetes mellitus with other skin ulcer; L97.812 Non-pressure chronic ulcer of other part of right lower leg with fat layer exposed; S91.12 Laceration with foreign body of toe without damage to nail; E11.40 Type 2 diabetes mellitus with diabetic neuropathy, unspecified; E11.51 Type 2 diabetes mellitus with diabetic peripheral angiopathy without gangrene; L84 Corns and callosities; E11.22 Type 2 diabetes mellitus with diabetic chronic kidney disease; I13.0 Hypertensive heart and chronic kidney disease with heart failure and stage 1 through stage 4 chronic kidney disease, or unspecified chronic kidney disease; I50.9 Heart failure, unspecified; N18.4 Chronic kidney disease, stage 4 (severe); G47.33 Obstructive sleep apnea (adult) (pediatric); E66.01 Morbid (severe) obesity due to excess calories; Z85.528 Personal history of other malignant neoplasm of kidney; Z79.4 Long term (current) use of insulin; Z79.82 Long term (current) use of aspirin; Z68.43 Body mass index [BMI] 50.0-59.9, adult; Z90.5 Acquired absence of kidney; Z89.429 Acquired absence of other toe(s), unspecified side; X58.XXXS Exposure to other specified factors, sequela ==

== ENCOUNTER → 2019-10-18 | Outpatient (CLI) | payer OTHER | LOC: HYPER 13:43 | DX: I87.331 Chronic venous hypertension (idiopathic) with ulcer and inflammation of right lower extremity (principal); E11.622 Type 2 diabetes mellitus with other skin ulcer; L97.812 Non-pressure chronic ulcer of other part of right lower leg with fat layer exposed; S91.12 Laceration with foreign body of toe without damage to nail; S80.11XD Contusion of right lower leg, subsequent encounter; E11.40 Type 2 diabetes mellitus with diabetic neuropathy, unspecified; E11.51 Type 2 diabetes mellitus with diabetic peripheral angiopathy without gangrene; L84 Corns and callosities; E11.22 Type 2 diabetes mellitus with diabetic chronic kidney disease; I13.0 Hypertensive heart and chronic kidney disease with heart failure and stage 1 through stage 4 chronic kidney disease, or unspecified chronic kidney disease; I50.9 Heart failure, unspecified; N18.4 Chronic kidney disease, stage 4 (severe); E78.5 Hyperlipidemia, unspecified; E66.01 Morbid (severe) obesity due to excess calories; G47.33 Obstructive sleep apnea (adult) (pediatric); Z85.528 Personal history of other malignant neoplasm of kidney; Z79.82 Long term (current) use of aspirin; Z79.4 Long term (current) use of insulin; Z90.5 Acquired absence of kidney; X58.XXXS Exposure to other specified factors, sequela; X58.XXXD Exposure to other specified factors, subsequent encounter ==

== ENCOUNTER → 2019-10-26 | Outpatient (CLI) | payer OTHER | LOC: HYPER 14:15 | DX: I87.331 Chronic venous hypertension (idiopathic) with ulcer and inflammation of right lower extremity (principal); E11.622 Type 2 diabetes mellitus with other skin ulcer; L97.812 Non-pressure chronic ulcer of other part of right lower leg with fat layer exposed; S91.12 Laceration with foreign body of toe without damage to nail; E11.51 Type 2 diabetes mellitus with diabetic peripheral angiopathy without gangrene; E11.40 Type 2 diabetes mellitus with diabetic neuropathy, unspecified; E11.22 Type 2 diabetes mellitus with diabetic chronic kidney disease; I13.0 Hypertensive heart and chronic kidney disease with heart failure and stage 1 through stage 4 chronic kidney disease, or unspecified chronic kidney disease; I50.9 Heart failure, unspecified; N18.4 Chronic kidney disease, stage 4 (severe); E78.5 Hyperlipidemia, unspecified; E66.01 Morbid (severe) obesity due to excess calories; G47.33 Obstructive sleep apnea (adult) (pediatric); Z68.43 Body mass index [BMI] 50.0-59.9, adult; Z79.4 Long term (current) use of insulin; Z79.82 Long term (current) use of aspirin; Z90.5 Acquired absence of kidney; Z89.429 Acquired absence of other toe(s), unspecified side; X58.XXXS Exposure to other specified factors, sequela ==

== ENCOUNTER → 2019-11-03 | Outpatient (CLI) | payer OTHER | LOC: HYPER 08:13 | DX: E11.622 Type 2 diabetes mellitus with other skin ulcer (principal); I87.331 Chronic venous hypertension (idiopathic) with ulcer and inflammation of right lower extremity; L97.812 Non-pressure chronic ulcer of other part of right lower leg with fat layer exposed; S91.12 Laceration with foreign body of toe without damage to nail; L84 Corns and callosities; E11.51 Type 2 diabetes mellitus with diabetic peripheral angiopathy without gangrene; E11.40 Type 2 diabetes mellitus with diabetic neuropathy, unspecified; E11.22 Type 2 diabetes mellitus with diabetic chronic kidney disease; I13.0 Hypertensive heart and chronic kidney disease with heart failure and stage 1 through stage 4 chronic kidney disease, or unspecified chronic kidney disease; N18.4 Chronic kidney disease, stage 4 (severe); I50.9 Heart failure, unspecified; E78.5 Hyperlipidemia, unspecified; E66.01 Morbid (severe) obesity due to excess calories; G47.33 Obstructive sleep apnea (adult) (pediatric); Z79.4 Long term (current) use of insulin; Z85.528 Personal history of other malignant neoplasm of kidney; Z68.43 Body mass index [BMI] 50.0-59.9, adult; X58.XXXD Exposure to other specified factors, subsequent encounter ==

== ENCOUNTER → 2019-11-10 | Outpatient (CLI) | payer OTHER | LOC: HYPER 12:58 | DX: E11.622 Type 2 diabetes mellitus with other skin ulcer (principal); I87.331 Chronic venous hypertension (idiopathic) with ulcer and inflammation of right lower extremity; L97.812 Non-pressure chronic ulcer of other part of right lower leg with fat layer exposed; S91.12 Laceration with foreign body of toe without damage to nail; S80.11XD Contusion of right lower leg, subsequent encounter; L84 Corns and callosities; E11.51 Type 2 diabetes mellitus with diabetic peripheral angiopathy without gangrene; E11.40 Type 2 diabetes mellitus with diabetic neuropathy, unspecified; E11.22 Type 2 diabetes mellitus with diabetic chronic kidney disease; I12.9 Hypertensive chronic kidney disease with stage 1 through stage 4 chronic kidney disease, or unspecified chronic kidney disease; N18.4 Chronic kidney disease, stage 4 (severe); E66.01 Morbid (severe) obesity due to excess calories; E78.5 Hyperlipidemia, unspecified; G47.33 Obstructive sleep apnea (adult) (pediatric); I87.2 Venous insufficiency (chronic) (peripheral); Z68.43 Body mass index [BMI] 50.0-59.9, adult; Z85.528 Personal history of other malignant neoplasm of kidney; Z79.4 Long term (current) use of insulin ==

== ENCOUNTER → 2019-11-17 | Outpatient (CLI) | payer OTHER | LOC: HYPER 13:05 | DX: E11.622 Type 2 diabetes mellitus with other skin ulcer (principal); I87.331 Chronic venous hypertension (idiopathic) with ulcer and inflammation of right lower extremity; L97.812 Non-pressure chronic ulcer of other part of right lower leg with fat layer exposed; L84 Corns and callosities; E11.51 Type 2 diabetes mellitus with diabetic peripheral angiopathy without gangrene; E11.22 Type 2 diabetes mellitus with diabetic chronic kidney disease; I13.0 Hypertensive heart and chronic kidney disease with heart failure and stage 1 through stage 4 chronic kidney disease, or unspecified chronic kidney disease; N18.4 Chronic kidney disease, stage 4 (severe); I50.9 Heart failure, unspecified; E11.40 Type 2 diabetes mellitus with diabetic neuropathy, unspecified; E66.01 Morbid (severe) obesity due to excess calories; E78.5 Hyperlipidemia, unspecified; G47.33 Obstructive sleep apnea (adult) (pediatric); Z68.43 Body mass index [BMI] 50.0-59.9, adult; Z89.429 Acquired absence of other toe(s), unspecified side; Z79.4 Long term (current) use of insulin ==

== ENCOUNTER → 2019-11-24 | Outpatient (CLI) | payer OTHER | LOC: HYPER 13:15 | DX: E11.622 Type 2 diabetes mellitus with other skin ulcer (principal); I87.331 Chronic venous hypertension (idiopathic) with ulcer and inflammation of right lower extremity; L97.812 Non-pressure chronic ulcer of other part of right lower leg with fat layer exposed; S80.11XD Contusion of right lower leg, subsequent encounter; L84 Corns and callosities; E11.51 Type 2 diabetes mellitus with diabetic peripheral angiopathy without gangrene; E11.22 Type 2 diabetes mellitus with diabetic chronic kidney disease; N18.4 Chronic kidney disease, stage 4 (severe); I13.0 Hypertensive heart and chronic kidney disease with heart failure and stage 1 through stage 4 chronic kidney disease, or unspecified chronic kidney disease; I50.9 Heart failure, unspecified; E11.40 Type 2 diabetes mellitus with diabetic neuropathy, unspecified; E66.01 Morbid (severe) obesity due to excess calories; E78.5 Hyperlipidemia, unspecified; G47.33 Obstructive sleep apnea (adult) (pediatric); Z79.4 Long term (current) use of insulin; Z89.429 Acquired absence of other toe(s), unspecified side; Z85.528 Personal history of other malignant neoplasm of kidney; Z68.43 Body mass index [BMI] 50.0-59.9, adult; X58.XXXD Exposure to other specified factors, subsequent encounter ==

== ENCOUNTER → 2019-12-01 | Outpatient (CLI) | payer OTHER | LOC: HYPER 13:03 | DX: E11.622 Type 2 diabetes mellitus with other skin ulcer (principal); I87.331 Chronic venous hypertension (idiopathic) with ulcer and inflammation of right lower extremity; L97.812 Non-pressure chronic ulcer of other part of right lower leg with fat layer exposed; S80.11XD Contusion of right lower leg, subsequent encounter; L84 Corns and callosities; E11.51 Type 2 diabetes mellitus with diabetic peripheral angiopathy without gangrene; E11.40 Type 2 diabetes mellitus with diabetic neuropathy, unspecified; E11.22 Type 2 diabetes mellitus with diabetic chronic kidney disease; I13.0 Hypertensive heart and chronic kidney disease with heart failure and stage 1 through stage 4 chronic kidney disease, or unspecified chronic kidney disease; N18.4 Chronic kidney disease, stage 4 (severe); I50.9 Heart failure, unspecified; E66.01 Morbid (severe) obesity due to excess calories; E78.5 Hyperlipidemia, unspecified; G47.33 Obstructive sleep apnea (adult) (pediatric); Z68.43 Body mass index [BMI] 50.0-59.9, adult; Z89.429 Acquired absence of other toe(s), unspecified side; Z85.528 Personal history of other malignant neoplasm of kidney; Z79.4 Long term (current) use of insulin; X58.XXXD Exposure to other specified factors, subsequent encounter ==

== ENCOUNTER → 2019-12-08 | Outpatient (CLI) | payer OTHER | LOC: HYPER 10:02 | DX: E11.622 Type 2 diabetes mellitus with other skin ulcer (principal); I87.331 Chronic venous hypertension (idiopathic) with ulcer and inflammation of right lower extremity; L97.812 Non-pressure chronic ulcer of other part of right lower leg with fat layer exposed; S80.11XD Contusion of right lower leg, subsequent encounter; S91.111A Laceration without foreign body of right great toe without damage to nail, initial encounter; L84 Corns and callosities; E11.51 Type 2 diabetes mellitus with diabetic peripheral angiopathy without gangrene; E11.40 Type 2 diabetes mellitus with diabetic neuropathy, unspecified; E11.22 Type 2 diabetes mellitus with diabetic chronic kidney disease; N18.4 Chronic kidney disease, stage 4 (severe); I13.0 Hypertensive heart and chronic kidney disease with heart failure and stage 1 through stage 4 chronic kidney disease, or unspecified chronic kidney disease; I50.9 Heart failure, unspecified; E66.01 Morbid (severe) obesity due to excess calories; E78.5 Hyperlipidemia, unspecified; G47.33 Obstructive sleep apnea (adult) (pediatric); Z79.4 Long term (current) use of insulin; Z85.528 Personal history of other malignant neoplasm of kidney; Z68.43 Body mass index [BMI] 50.0-59.9, adult; X58.XXXD Exposure to other specified factors, subsequent encounter; X58.XXXA Exposure to other specified factors, initial encounter; Y93.89 Activity, other specified; Y92.89 Other specified places as the place of occurrence of the external cause; Y99.8 Other external cause status ==

== ENCOUNTER → 2019-12-15 | Outpatient (CLI) | payer OTHER | LOC: HYPER 10:44 | DX: E11.622 Type 2 diabetes mellitus with other skin ulcer (principal); I87.331 Chronic venous hypertension (idiopathic) with ulcer and inflammation of right lower extremity; L97.812 Non-pressure chronic ulcer of other part of right lower leg with fat layer exposed; S80.11XD Contusion of right lower leg, subsequent encounter; L84 Corns and callosities; E11.51 Type 2 diabetes mellitus with diabetic peripheral angiopathy without gangrene; E11.22 Type 2 diabetes mellitus with diabetic chronic kidney disease; I13.0 Hypertensive heart and chronic kidney disease with heart failure and stage 1 through stage 4 chronic kidney disease, or unspecified chronic kidney disease; N18.4 Chronic kidney disease, stage 4 (severe); I50.9 Heart failure, unspecified; E11.40 Type 2 diabetes mellitus with diabetic neuropathy, unspecified; E66.01 Morbid (severe) obesity due to excess calories; E78.5 Hyperlipidemia, unspecified; G47.33 Obstructive sleep apnea (adult) (pediatric); Z79.4 Long term (current) use of insulin; Z85.528 Personal history of other malignant neoplasm of kidney; Z68.43 Body mass index [BMI] 50.0-59.9, adult ==

== ENCOUNTER → 2019-12-22 | Outpatient (CLI) | payer OTHER | LOC: HYPER 11:07 | DX: E11.622 Type 2 diabetes mellitus with other skin ulcer (principal); I87.331 Chronic venous hypertension (idiopathic) with ulcer and inflammation of right lower extremity; L97.812 Non-pressure chronic ulcer of other part of right lower leg with fat layer exposed; S80.11XD Contusion of right lower leg, subsequent encounter; L84 Corns and callosities; E11.51 Type 2 diabetes mellitus with diabetic peripheral angiopathy without gangrene; E11.22 Type 2 diabetes mellitus with diabetic chronic kidney disease; I13.0 Hypertensive heart and chronic kidney disease with heart failure and stage 1 through stage 4 chronic kidney disease, or unspecified chronic kidney disease; I50.9 Heart failure, unspecified; N18.4 Chronic kidney disease, stage 4 (severe); E11.40 Type 2 diabetes mellitus with diabetic neuropathy, unspecified; E66.01 Morbid (severe) obesity due to excess calories; E78.5 Hyperlipidemia, unspecified; G47.33 Obstructive sleep apnea (adult) (pediatric); Z89.429 Acquired absence of other toe(s), unspecified side; Z85.528 Personal history of other malignant neoplasm of kidney; Z68.43 Body mass index [BMI] 50.0-59.9, adult; Z79.4 Long term (current) use of insulin; X58.XXXD Exposure to other specified factors, subsequent encounter ==

== ENCOUNTER → 2019-12-29 | Outpatient (CLI) | payer OTHER | LOC: HYPER 13:03 | DX: E11.622 Type 2 diabetes mellitus with other skin ulcer (principal); I87.331 Chronic venous hypertension (idiopathic) with ulcer and inflammation of right lower extremity; L97.812 Non-pressure chronic ulcer of other part of right lower leg with fat layer exposed; S80.11XD Contusion of right lower leg, subsequent encounter; L84 Corns and callosities; E11.51 Type 2 diabetes mellitus with diabetic peripheral angiopathy without gangrene; E11.40 Type 2 diabetes mellitus with diabetic neuropathy, unspecified; E11.22 Type 2 diabetes mellitus with diabetic chronic kidney disease; I13.0 Hypertensive heart and chronic kidney disease with heart failure and stage 1 through stage 4 chronic kidney disease, or unspecified chronic kidney disease; N18.4 Chronic kidney disease, stage 4 (severe); I50.9 Heart failure, unspecified; E66.01 Morbid (severe) obesity due to excess calories; E78.5 Hyperlipidemia, unspecified; G47.33 Obstructive sleep apnea (adult) (pediatric); Z79.4 Long term (current) use of insulin; Z85.528 Personal history of other malignant neoplasm of kidney; Z68.43 Body mass index [BMI] 50.0-59.9, adult; X58.XXXD Exposure to other specified factors, subsequent encounter ==

== ENCOUNTER → 2020-01-05 | Outpatient (CLI) | payer OTHER | LOC: HYPER 12:50 | DX: E11.622 Type 2 diabetes mellitus with other skin ulcer (principal); I87.331 Chronic venous hypertension (idiopathic) with ulcer and inflammation of right lower extremity; L97.812 Non-pressure chronic ulcer of other part of right lower leg with fat layer exposed; S80.11XD Contusion of right lower leg, subsequent encounter; L84 Corns and callosities; E11.51 Type 2 diabetes mellitus with diabetic peripheral angiopathy without gangrene; E11.22 Type 2 diabetes mellitus with diabetic chronic kidney disease; I13.0 Hypertensive heart and chronic kidney disease with heart failure and stage 1 through stage 4 chronic kidney disease, or unspecified chronic kidney disease; N18.4 Chronic kidney disease, stage 4 (severe); I50.9 Heart failure, unspecified; E11.40 Type 2 diabetes mellitus with diabetic neuropathy, unspecified; E66.01 Morbid (severe) obesity due to excess calories; E78.5 Hyperlipidemia, unspecified; G47.33 Obstructive sleep apnea (adult) (pediatric); Z79.4 Long term (current) use of insulin; Z85.528 Personal history of other malignant neoplasm of kidney; Z68.43 Body mass index [BMI] 50.0-59.9, adult; X58.XXXD Exposure to other specified factors, subsequent encounter ==

== ENCOUNTER → 2020-01-12 | Outpatient (CLI) | payer OTHER | LOC: HYPER 07:22 | PROVIDERS: ATTEND Emergency Medicine | DX: E11.622 Type 2 diabetes mellitus with other skin ulcer (principal); I87.331 Chronic venous hypertension (idiopathic) with ulcer and inflammation of right lower extremity; L97.812 Non-pressure chronic ulcer of other part of right lower leg with fat layer exposed; S80.11XD Contusion of right lower leg, subsequent encounter; L84 Corns and callosities; E11.22 Type 2 diabetes mellitus with diabetic chronic kidney disease; I13.0 Hypertensive heart and chronic kidney disease with heart failure and stage 1 through stage 4 chronic kidney disease, or unspecified chronic kidney disease; I50.9 Heart failure, unspecified; N18.4 Chronic kidney disease, stage 4 (severe); E11.51 Type 2 diabetes mellitus with diabetic peripheral angiopathy without gangrene; E11.40 Type 2 diabetes mellitus with diabetic neuropathy, unspecified; E66.01 Morbid (severe) obesity due to excess calories; E78.5 Hyperlipidemia, unspecified; G47.33 Obstructive sleep apnea (adult) (pediatric); Z79.4 Long term (current) use of insulin; Z89.429 Acquired absence of other toe(s), unspecified side; Z85.528 Personal history of other malignant neoplasm of kidney; Z68.43 Body mass index [BMI] 50.0-59.9, adult; X58.XXXD Exposure to other specified factors, subsequent encounter ==

== ENCOUNTER → 2020-01-19 | Outpatient (CLI) | payer OTHER | LOC: HYPER 13:27 | PROVIDERS: ATTEND Emergency Medicine | DX: I87.331 Chronic venous hypertension (idiopathic) with ulcer and inflammation of right lower extremity (principal); E11.622 Type 2 diabetes mellitus with other skin ulcer; L97.812 Non-pressure chronic ulcer of other part of right lower leg with fat layer exposed; S80.11XD Contusion of right lower leg, subsequent encounter; E11.40 Type 2 diabetes mellitus with diabetic neuropathy, unspecified; E11.51 Type 2 diabetes mellitus with diabetic peripheral angiopathy without gangrene; E11.22 Type 2 diabetes mellitus with diabetic chronic kidney disease; I13.0 Hypertensive heart and chronic kidney disease with heart failure and stage 1 through stage 4 chronic kidney disease, or unspecified chronic kidney disease; I50.9 Heart failure, unspecified; N18.4 Chronic kidney disease, stage 4 (severe); E78.5 Hyperlipidemia, unspecified; E66.01 Morbid (severe) obesity due to excess calories; G47.33 Obstructive sleep apnea (adult) (pediatric); Z85.520 Personal history of malignant carcinoid tumor of kidney; Z68.43 Body mass index [BMI] 50.0-59.9, adult; Z79.4 Long term (current) use of insulin; Z79.82 Long term (current) use of aspirin; Z98.41 Cataract extraction status, right eye; Z98.42 Cataract extraction status, left eye; Z90.5 Acquired absence of kidney; Z89.429 Acquired absence of other toe(s), unspecified side; X58.XXXD Exposure to other specified factors, subsequent encounter ==

== ENCOUNTER → 2020-01-26 | Outpatient (CLI) | payer OTHER | LOC: HYPER 12:53 | PROVIDERS: ATTEND Emergency Medicine | DX: E11.622 Type 2 diabetes mellitus with other skin ulcer (principal); I87.331 Chronic venous hypertension (idiopathic) with ulcer and inflammation of right lower extremity; L97.812 Non-pressure chronic ulcer of other part of right lower leg with fat layer exposed; S80.11XD Contusion of right lower leg, subsequent encounter; L84 Corns and callosities; E11.51 Type 2 diabetes mellitus with diabetic peripheral angiopathy without gangrene; E11.40 Type 2 diabetes mellitus with diabetic neuropathy, unspecified; E11.22 Type 2 diabetes mellitus with diabetic chronic kidney disease; I13.0 Hypertensive heart and chronic kidney disease with heart failure and stage 1 through stage 4 chronic kidney disease, or unspecified chronic kidney disease; N18.4 Chronic kidney disease, stage 4 (severe); I50.9 Heart failure, unspecified; E66.01 Morbid (severe) obesity due to excess calories; E78.5 Hyperlipidemia, unspecified; G47.33 Obstructive sleep apnea (adult) (pediatric); Z79.4 Long term (current) use of insulin; Z85.528 Personal history of other malignant neoplasm of kidney; Z89.429 Acquired absence of other toe(s), unspecified side; Z68.43 Body mass index [BMI] 50.0-59.9, adult ==

== ENCOUNTER → 2020-02-02 | Outpatient (CLI) | payer OTHER | LOC: HYPER 10:06 | PROVIDERS: ATTEND Emergency Medicine Emergency Medical Services | DX: E11.622 Type 2 diabetes mellitus with other skin ulcer (principal); I87.331 Chronic venous hypertension (idiopathic) with ulcer and inflammation of right lower extremity; L97.812 Non-pressure chronic ulcer of other part of right lower leg with fat layer exposed; L84 Corns and callosities; S80.11XD Contusion of right lower leg, subsequent encounter; E11.22 Type 2 diabetes mellitus with diabetic chronic kidney disease; I13.0 Hypertensive heart and chronic kidney disease with heart failure and stage 1 through stage 4 chronic kidney disease, or unspecified chronic kidney disease; N18.4 Chronic kidney disease, stage 4 (severe); I50.9 Heart failure, unspecified; E11.40 Type 2 diabetes mellitus with diabetic neuropathy, unspecified; E11.51 Type 2 diabetes mellitus with diabetic peripheral angiopathy without gangrene; E66.01 Morbid (severe) obesity due to excess calories; E78.5 Hyperlipidemia, unspecified; G47.33 Obstructive sleep apnea (adult) (pediatric); Z79.4 Long term (current) use of insulin; Z89.429 Acquired absence of other toe(s), unspecified side; Z85.528 Personal history of other malignant neoplasm of kidney; Z68.43 Body mass index [BMI] 50.0-59.9, adult; X58.XXXD Exposure to other specified factors, subsequent encounter ==

== ENCOUNTER → 2020-02-09 | Outpatient (CLI) | payer OTHER | LOC: HYPER 07:38 | PROVIDERS: ATTEND Emergency Medicine | DX: E11.622 Type 2 diabetes mellitus with other skin ulcer (principal); I87.331 Chronic venous hypertension (idiopathic) with ulcer and inflammation of right lower extremity; L97.812 Non-pressure chronic ulcer of other part of right lower leg with fat layer exposed; S80.11XD Contusion of right lower leg, subsequent encounter; L84 Corns and callosities; E11.40 Type 2 diabetes mellitus with diabetic neuropathy, unspecified; E11.51 Type 2 diabetes mellitus with diabetic peripheral angiopathy without gangrene; E11.22 Type 2 diabetes mellitus with diabetic chronic kidney disease; N18.4 Chronic kidney disease, stage 4 (severe); I13.0 Hypertensive heart and chronic kidney disease with heart failure and stage 1 through stage 4 chronic kidney disease, or unspecified chronic kidney disease; I50.9 Heart failure, unspecified; E66.01 Morbid (severe) obesity due to excess calories; E78.5 Hyperlipidemia, unspecified; G47.33 Obstructive sleep apnea (adult) (pediatric); Z79.4 Long term (current) use of insulin; Z89.429 Acquired absence of other toe(s), unspecified side; Z85.528 Personal history of other malignant neoplasm of kidney; Z68.43 Body mass index [BMI] 50.0-59.9, adult ==

== ENCOUNTER → 2020-02-16 | Outpatient (CLI) | payer OTHER | LOC: HYPER 09:54 | PROVIDERS: ATTEND Emergency Medicine | DX: I87.331 Chronic venous hypertension (idiopathic) with ulcer and inflammation of right lower extremity (principal); E11.622 Type 2 diabetes mellitus with other skin ulcer; L97.812 Non-pressure chronic ulcer of other part of right lower leg with fat layer exposed; S80.11XD Contusion of right lower leg, subsequent encounter; E11.51 Type 2 diabetes mellitus with diabetic peripheral angiopathy without gangrene; E11.40 Type 2 diabetes mellitus with diabetic neuropathy, unspecified; E11.22 Type 2 diabetes mellitus with diabetic chronic kidney disease; I13.0 Hypertensive heart and chronic kidney disease with heart failure and stage 1 through stage 4 chronic kidney disease, or unspecified chronic kidney disease; I50.9 Heart failure, unspecified; N18.4 Chronic kidney disease, stage 4 (severe); E78.5 Hyperlipidemia, unspecified; E66.01 Morbid (severe) obesity due to excess calories; G47.33 Obstructive sleep apnea (adult) (pediatric); Z68.43 Body mass index [BMI] 50.0-59.9, adult; Z85.528 Personal history of other malignant neoplasm of kidney; Z79.4 Long term (current) use of insulin; Z79.82 Long term (current) use of aspirin; Z90.5 Acquired absence of kidney; Z89.429 Acquired absence of other toe(s), unspecified side; X58.XXXD Exposure to other specified factors, subsequent encounter ==

== ENCOUNTER 2020-06-01 14:18 | Emergency (ER) | payer OTHER ==
[~2020-06-01] VITALS: Ht 185.4 cm; Wt 181.4 kg
[2020-06-01 16:53] LABS: HEMATOCRIT 41.9 % (42.0-52.0); HEMOGLOBIN 13.6 gm/dL (14.0-18.0); MCH 31.8 pg (26.0-34.0); MCHC 32.5 g/dL (28.0-37.0); MCV 97.9 fL (80.0-100.0); PLATELET COUNT 184 thou/uL (150-400); RBC 4.28 mil/uL (4.50-6.00); RDW 13.7 % (10.5-14.5); WBC 10.1 thou/uL (4.0-11.0)
[2020-06-01 17:11] LABS: CREATININE 3.5 mg/dL (0.7-1.3); POTASSIUM 4.7 mmol/L (3.5-5.1)
[2020-06-01 17:21] LABS: ABSOLUTE NEUTROPHILS 6.9 thou/uL (1.4-8.2); LARGE PLATELETS OCCASIONAL
[2020-06-01] MEDS ORDERED: NOVOLIN 70100 UNIT/5 SUBQ (17:22)
[2020-06-01] MEDS ORDERED: NOVOLIN 70100 UNIT/5 (17:23)
[2020-06-01] MEDS ORDERED: BACTRIM DS TAB1 EACH PO (19:21)
[2020-06-01 19:38] VITALS: BP 127/61
== END 2020-06-01 19:38 | disposition home or self-care (01) ==
LOC: ER 14:18
PROVIDERS: Emergency Medicine
DX: L03.116 Cellulitis of left lower limb (principal); E11.9 Type 2 diabetes mellitus without complications; I11.0 Hypertensive heart disease with heart failure; I50.9 Heart failure, unspecified; E78.00 Pure hypercholesterolemia, unspecified; E66.9 Obesity, unspecified; Z90.89 Acquired absence of other organs; Z68.43 Body mass index [BMI] 50.0-59.9, adult; Z79.899 Other long term (current) drug therapy; Z79.4 Long term (current) use of insulin

== ENCOUNTER → 2020-06-22 | Outpatient (CLI) | payer OTHER ==
[~2020-06-22] MED LIST changes: +BACTRIM DS TAB1 EACH PO; +NOVOLIN 70100 UNIT/5; +NOVOLIN 70100 UNIT/5 SUBQ
== END ==
LOC: SJCVCIMAG 11:50
PROVIDERS: ATTEND Emergency Medicine
DX: I70.202 Unspecified atherosclerosis of native arteries of extremities, left leg (principal); L97.818 Non-pressure chronic ulcer of other part of right lower leg with other specified severity; L97.828 Non-pressure chronic ulcer of other part of left lower leg with other specified severity; Z79.899 Other long term (current) drug therapy

== ENCOUNTER → 2020-06-25 | Outpatient (CLI) | payer OTHER | LOC: HYPER 13:00 | PROVIDERS: ATTEND Emergency Medicine | DX: E11.622 Type 2 diabetes mellitus with other skin ulcer (principal); I87.333 Chronic venous hypertension (idiopathic) with ulcer and inflammation of bilateral lower extremity; L97.812 Non-pressure chronic ulcer of other part of right lower leg with fat layer exposed; L97.821 Non-pressure chronic ulcer of other part of left lower leg limited to breakdown of skin; E11.621 Type 2 diabetes mellitus with foot ulcer; L97.521 Non-pressure chronic ulcer of other part of left foot limited to breakdown of skin; L84 Corns and callosities; S80.11XD Contusion of right lower leg, subsequent encounter; E11.51 Type 2 diabetes mellitus with diabetic peripheral angiopathy without gangrene; E11.40 Type 2 diabetes mellitus with diabetic neuropathy, unspecified; E11.22 Type 2 diabetes mellitus with diabetic chronic kidney disease; I13.0 Hypertensive heart and chronic kidney disease with heart failure and stage 1 through stage 4 chronic kidney disease, or unspecified chronic kidney disease; N18.4 Chronic kidney disease, stage 4 (severe); I50.9 Heart failure, unspecified; E66.01 Morbid (severe) obesity due to excess calories; E78.5 Hyperlipidemia, unspecified; G47.33 Obstructive sleep apnea (adult) (pediatric); Z89.429 Acquired absence of other toe(s), unspecified side; Z68.43 Body mass index [BMI] 50.0-59.9, adult; Z79.4 Long term (current) use of insulin; X58.XXXD Exposure to other specified factors, subsequent encounter ==

== ENCOUNTER → 2020-07-02 | Outpatient (CLI) | payer OTHER | LOC: HYPER 13:21 | PROVIDERS: ATTEND Emergency Medicine | DX: E11.622 Type 2 diabetes mellitus with other skin ulcer (principal); I87.333 Chronic venous hypertension (idiopathic) with ulcer and inflammation of bilateral lower extremity; L97.812 Non-pressure chronic ulcer of other part of right lower leg with fat layer exposed; L97.822 Non-pressure chronic ulcer of other part of left lower leg with fat layer exposed; E11.621 Type 2 diabetes mellitus with foot ulcer; L97.521 Non-pressure chronic ulcer of other part of left foot limited to breakdown of skin; L84 Corns and callosities; S80.11XD Contusion of right lower leg, subsequent encounter; E11.51 Type 2 diabetes mellitus with diabetic peripheral angiopathy without gangrene; E11.40 Type 2 diabetes mellitus with diabetic neuropathy, unspecified; E11.22 Type 2 diabetes mellitus with diabetic chronic kidney disease; I13.0 Hypertensive heart and chronic kidney disease with heart failure and stage 1 through stage 4 chronic kidney disease, or unspecified chronic kidney disease; N18.4 Chronic kidney disease, stage 4 (severe); I50.9 Heart failure, unspecified; E66.01 Morbid (severe) obesity due to excess calories; E78.5 Hyperlipidemia, unspecified; G47.33 Obstructive sleep apnea (adult) (pediatric); Z89.429 Acquired absence of other toe(s), unspecified side; Z68.43 Body mass index [BMI] 50.0-59.9, adult; Z79.4 Long term (current) use of insulin; X58.XXXD Exposure to other specified factors, subsequent encounter ==

== ENCOUNTER → 2020-07-09 | Outpatient (CLI) | payer OTHER | LOC: HYPER 10:07 | PROVIDERS: ATTEND Emergency Medicine | DX: E11.622 Type 2 diabetes mellitus with other skin ulcer (principal); I87.333 Chronic venous hypertension (idiopathic) with ulcer and inflammation of bilateral lower extremity; L97.822 Non-pressure chronic ulcer of other part of left lower leg with fat layer exposed; L97.812 Non-pressure chronic ulcer of other part of right lower leg with fat layer exposed; E11.621 Type 2 diabetes mellitus with foot ulcer; L97.521 Non-pressure chronic ulcer of other part of left foot limited to breakdown of skin; L84 Corns and callosities; S80.11XD Contusion of right lower leg, subsequent encounter; E11.51 Type 2 diabetes mellitus with diabetic peripheral angiopathy without gangrene; E11.40 Type 2 diabetes mellitus with diabetic neuropathy, unspecified; E11.22 Type 2 diabetes mellitus with diabetic chronic kidney disease; I13.0 Hypertensive heart and chronic kidney disease with heart failure and stage 1 through stage 4 chronic kidney disease, or unspecified chronic kidney disease; N18.4 Chronic kidney disease, stage 4 (severe); I50.9 Heart failure, unspecified; E66.01 Morbid (severe) obesity due to excess calories; E78.5 Hyperlipidemia, unspecified; G47.33 Obstructive sleep apnea (adult) (pediatric); Z89.429 Acquired absence of other toe(s), unspecified side; Z68.43 Body mass index [BMI] 50.0-59.9, adult; Z79.4 Long term (current) use of insulin; X58.XXXD Exposure to other specified factors, subsequent encounter ==

== ENCOUNTER → 2020-07-16 | Outpatient (CLI) | payer OTHER | LOC: HYPER 13:30 | PROVIDERS: ATTEND Emergency Medicine | DX: E11.622 Type 2 diabetes mellitus with other skin ulcer (principal); I87.333 Chronic venous hypertension (idiopathic) with ulcer and inflammation of bilateral lower extremity; L97.822 Non-pressure chronic ulcer of other part of left lower leg with fat layer exposed; L97.812 Non-pressure chronic ulcer of other part of right lower leg with fat layer exposed; E11.621 Type 2 diabetes mellitus with foot ulcer; L97.521 Non-pressure chronic ulcer of other part of left foot limited to breakdown of skin; L84 Corns and callosities; S80.11XD Contusion of right lower leg, subsequent encounter; E11.51 Type 2 diabetes mellitus with diabetic peripheral angiopathy without gangrene; E11.40 Type 2 diabetes mellitus with diabetic neuropathy, unspecified; E11.22 Type 2 diabetes mellitus with diabetic chronic kidney disease; I13.0 Hypertensive heart and chronic kidney disease with heart failure and stage 1 through stage 4 chronic kidney disease, or unspecified chronic kidney disease; N18.4 Chronic kidney disease, stage 4 (severe); I50.9 Heart failure, unspecified; E66.01 Morbid (severe) obesity due to excess calories; E78.5 Hyperlipidemia, unspecified; G47.33 Obstructive sleep apnea (adult) (pediatric); Z89.429 Acquired absence of other toe(s), unspecified side; Z68.43 Body mass index [BMI] 50.0-59.9, adult; Z79.4 Long term (current) use of insulin; Z85.528 Personal history of other malignant neoplasm of kidney; X58.XXXD Exposure to other specified factors, subsequent encounter ==

== ENCOUNTER → 2020-07-30 | Outpatient (CLI) | payer OTHER | LOC: HYPER 10:41 | PROVIDERS: ATTEND Emergency Medicine | DX: E11.622 Type 2 diabetes mellitus with other skin ulcer (principal); I87.333 Chronic venous hypertension (idiopathic) with ulcer and inflammation of bilateral lower extremity; L97.822 Non-pressure chronic ulcer of other part of left lower leg with fat layer exposed; L97.812 Non-pressure chronic ulcer of other part of right lower leg with fat layer exposed; E11.621 Type 2 diabetes mellitus with foot ulcer; L97.521 Non-pressure chronic ulcer of other part of left foot limited to breakdown of skin; L84 Corns and callosities; S80.11XD Contusion of right lower leg, subsequent encounter; E11.51 Type 2 diabetes mellitus with diabetic peripheral angiopathy without gangrene; E11.40 Type 2 diabetes mellitus with diabetic neuropathy, unspecified; E11.22 Type 2 diabetes mellitus with diabetic chronic kidney disease; I13.0 Hypertensive heart and chronic kidney disease with heart failure and stage 1 through stage 4 chronic kidney disease, or unspecified chronic kidney disease; N18.4 Chronic kidney disease, stage 4 (severe); I50.9 Heart failure, unspecified; E66.01 Morbid (severe) obesity due to excess calories; E78.5 Hyperlipidemia, unspecified; G47.33 Obstructive sleep apnea (adult) (pediatric); Z89.429 Acquired absence of other toe(s), unspecified side; Z68.43 Body mass index [BMI] 50.0-59.9, adult; Z79.4 Long term (current) use of insulin; Z85.528 Personal history of other malignant neoplasm of kidney; X58.XXXD Exposure to other specified factors, subsequent encounter ==

== ENCOUNTER → 2020-08-06 | Outpatient (CLI) | payer OTHER | LOC: HYPER 14:12 | PROVIDERS: ATTEND Emergency Medicine | DX: E11.622 Type 2 diabetes mellitus with other skin ulcer (principal); L97.822 Non-pressure chronic ulcer of other part of left lower leg with fat layer exposed; I87.331 Chronic venous hypertension (idiopathic) with ulcer and inflammation of right lower extremity; L97.812 Non-pressure chronic ulcer of other part of right lower leg with fat layer exposed; E11.621 Type 2 diabetes mellitus with foot ulcer; L97.521 Non-pressure chronic ulcer of other part of left foot limited to breakdown of skin; S80.11XD Contusion of right lower leg, subsequent encounter; E11.40 Type 2 diabetes mellitus with diabetic neuropathy, unspecified; E11.51 Type 2 diabetes mellitus with diabetic peripheral angiopathy without gangrene; L84 Corns and callosities; E11.22 Type 2 diabetes mellitus with diabetic chronic kidney disease; I13.0 Hypertensive heart and chronic kidney disease with heart failure and stage 1 through stage 4 chronic kidney disease, or unspecified chronic kidney disease; I50.9 Heart failure, unspecified; N18.4 Chronic kidney disease, stage 4 (severe); E78.5 Hyperlipidemia, unspecified; G47.33 Obstructive sleep apnea (adult) (pediatric); E66.01 Morbid (severe) obesity due to excess calories; Z68.43 Body mass index [BMI] 50.0-59.9, adult; Z85.038 Personal history of other malignant neoplasm of large intestine; Z79.4 Long term (current) use of insulin; Z90.5 Acquired absence of kidney; Z89.429 Acquired absence of other toe(s), unspecified side; X58.XXXD Exposure to other specified factors, subsequent encounter ==

== ENCOUNTER → 2020-08-13 | Outpatient (CLI) | payer OTHER | LOC: HYPER 12:55 | PROVIDERS: ATTEND Emergency Medicine | DX: E11.622 Type 2 diabetes mellitus with other skin ulcer (principal); L97.822 Non-pressure chronic ulcer of other part of left lower leg with fat layer exposed; I87.331 Chronic venous hypertension (idiopathic) with ulcer and inflammation of right lower extremity; L97.812 Non-pressure chronic ulcer of other part of right lower leg with fat layer exposed; E11.621 Type 2 diabetes mellitus with foot ulcer; L97.521 Non-pressure chronic ulcer of other part of left foot limited to breakdown of skin; S80.11XD Contusion of right lower leg, subsequent encounter; E11.40 Type 2 diabetes mellitus with diabetic neuropathy, unspecified; E11.51 Type 2 diabetes mellitus with diabetic peripheral angiopathy without gangrene; L84 Corns and callosities; E11.22 Type 2 diabetes mellitus with diabetic chronic kidney disease; I13.0 Hypertensive heart and chronic kidney disease with heart failure and stage 1 through stage 4 chronic kidney disease, or unspecified chronic kidney disease; I50.9 Heart failure, unspecified; N18.4 Chronic kidney disease, stage 4 (severe); E78.5 Hyperlipidemia, unspecified; G47.33 Obstructive sleep apnea (adult) (pediatric); E66.01 Morbid (severe) obesity due to excess calories; Z68.43 Body mass index [BMI] 50.0-59.9, adult; Z85.038 Personal history of other malignant neoplasm of large intestine; Z79.4 Long term (current) use of insulin; Z90.5 Acquired absence of kidney; Z89.429 Acquired absence of other toe(s), unspecified side; X58.XXXD Exposure to other specified factors, subsequent encounter ==

== ENCOUNTER → 2020-08-21 | Outpatient (CLI) | payer OTHER | LOC: HYPER 08:23 | PROVIDERS: ATTEND Emergency Medicine Emergency Medical Services | DX: E11.622 Type 2 diabetes mellitus with other skin ulcer (principal); L97.822 Non-pressure chronic ulcer of other part of left lower leg with fat layer exposed; E11.621 Type 2 diabetes mellitus with foot ulcer; L97.521 Non-pressure chronic ulcer of other part of left foot limited to breakdown of skin; L84 Corns and callosities; E11.40 Type 2 diabetes mellitus with diabetic neuropathy, unspecified; E11.51 Type 2 diabetes mellitus with diabetic peripheral angiopathy without gangrene; E11.22 Type 2 diabetes mellitus with diabetic chronic kidney disease; I13.0 Hypertensive heart and chronic kidney disease with heart failure and stage 1 through stage 4 chronic kidney disease, or unspecified chronic kidney disease; I50.9 Heart failure, unspecified; N18.4 Chronic kidney disease, stage 4 (severe); E66.01 Morbid (severe) obesity due to excess calories; E78.5 Hyperlipidemia, unspecified; G47.33 Obstructive sleep apnea (adult) (pediatric); I87.2 Venous insufficiency (chronic) (peripheral); Z68.43 Body mass index [BMI] 50.0-59.9, adult; Z85.038 Personal history of other malignant neoplasm of large intestine; Z79.4 Long term (current) use of insulin; Z90.5 Acquired absence of kidney; Z89.429 Acquired absence of other toe(s), unspecified side ==

== ENCOUNTER → 2020-10-09 | Outpatient (CLI) | payer OTHER | LOC: HYPER 12:58 | PROVIDERS: ATTEND Emergency Medicine | DX: E11.622 Type 2 diabetes mellitus with other skin ulcer (principal); L97.822 Non-pressure chronic ulcer of other part of left lower leg with fat layer exposed; I87.2 Venous insufficiency (chronic) (peripheral); E11.51 Type 2 diabetes mellitus with diabetic peripheral angiopathy without gangrene; E11.40 Type 2 diabetes mellitus with diabetic neuropathy, unspecified; E11.22 Type 2 diabetes mellitus with diabetic chronic kidney disease; I13.0 Hypertensive heart and chronic kidney disease with heart failure and stage 1 through stage 4 chronic kidney disease, or unspecified chronic kidney disease; I50.9 Heart failure, unspecified; N18.4 Chronic kidney disease, stage 4 (severe); E78.5 Hyperlipidemia, unspecified; G47.33 Obstructive sleep apnea (adult) (pediatric); E66.01 Morbid (severe) obesity due to excess calories; Z68.43 Body mass index [BMI] 50.0-59.9, adult; Z85.528 Personal history of other malignant neoplasm of kidney; Z79.4 Long term (current) use of insulin; Z79.82 Long term (current) use of aspirin; Z79.899 Other long term (current) drug therapy; Z90.5 Acquired absence of kidney; Z98.41 Cataract extraction status, right eye; Z98.42 Cataract extraction status, left eye; Z89.429 Acquired absence of other toe(s), unspecified side ==

== ENCOUNTER → 2020-10-23 | Outpatient (CLI) | payer OTHER | LOC: HYPER 10:44 | PROVIDERS: ATTEND Emergency Medicine Emergency Medical Services | DX: E11.622 Type 2 diabetes mellitus with other skin ulcer (principal); L97.822 Non-pressure chronic ulcer of other part of left lower leg with fat layer exposed; I87.2 Venous insufficiency (chronic) (peripheral); E11.51 Type 2 diabetes mellitus with diabetic peripheral angiopathy without gangrene; E11.40 Type 2 diabetes mellitus with diabetic neuropathy, unspecified; E11.22 Type 2 diabetes mellitus with diabetic chronic kidney disease; I13.0 Hypertensive heart and chronic kidney disease with heart failure and stage 1 through stage 4 chronic kidney disease, or unspecified chronic kidney disease; I50.9 Heart failure, unspecified; N18.4 Chronic kidney disease, stage 4 (severe); E78.5 Hyperlipidemia, unspecified; G47.33 Obstructive sleep apnea (adult) (pediatric); E66.01 Morbid (severe) obesity due to excess calories; Z68.43 Body mass index [BMI] 50.0-59.9, adult; Z85.528 Personal history of other malignant neoplasm of kidney; Z79.4 Long term (current) use of insulin; Z90.5 Acquired absence of kidney; Z89.429 Acquired absence of other toe(s), unspecified side ==

== ENCOUNTER → 2020-11-06 | Outpatient (CLI) | payer OTHER | LOC: HYPER 12:01 | PROVIDERS: ATTEND Emergency Medicine | DX: E11.622 Type 2 diabetes mellitus with other skin ulcer (principal); L97.822 Non-pressure chronic ulcer of other part of left lower leg with fat layer exposed; I87.2 Venous insufficiency (chronic) (peripheral); E11.51 Type 2 diabetes mellitus with diabetic peripheral angiopathy without gangrene; E11.40 Type 2 diabetes mellitus with diabetic neuropathy, unspecified; E11.22 Type 2 diabetes mellitus with diabetic chronic kidney disease; I13.2 Hypertensive heart and chronic kidney disease with heart failure and with stage 5 chronic kidney disease, or end stage renal disease; I50.9 Heart failure, unspecified; N18.4 Chronic kidney disease, stage 4 (severe); E78.5 Hyperlipidemia, unspecified; E66.01 Morbid (severe) obesity due to excess calories; G47.33 Obstructive sleep apnea (adult) (pediatric); Z68.43 Body mass index [BMI] 50.0-59.9, adult; Z85.528 Personal history of other malignant neoplasm of kidney; Z79.899 Other long term (current) drug therapy; Z79.4 Long term (current) use of insulin; Z79.82 Long term (current) use of aspirin; Z89.429 Acquired absence of other toe(s), unspecified side; Z90.5 Acquired absence of kidney ==

== ENCOUNTER → 2020-12-12 | Outpatient (CLI) | payer OTHER | LOC: HYPER 09:49 | PROVIDERS: ATTEND Emergency Medicine | DX: E11.622 Type 2 diabetes mellitus with other skin ulcer (principal); L97.822 Non-pressure chronic ulcer of other part of left lower leg with fat layer exposed; L97.322 Non-pressure chronic ulcer of left ankle with fat layer exposed; L84 Corns and callosities; I87.2 Venous insufficiency (chronic) (peripheral); E11.51 Type 2 diabetes mellitus with diabetic peripheral angiopathy without gangrene; E11.40 Type 2 diabetes mellitus with diabetic neuropathy, unspecified; E11.22 Type 2 diabetes mellitus with diabetic chronic kidney disease; I13.2 Hypertensive heart and chronic kidney disease with heart failure and with stage 5 chronic kidney disease, or end stage renal disease; I50.9 Heart failure, unspecified; N18.4 Chronic kidney disease, stage 4 (severe); E78.5 Hyperlipidemia, unspecified; E66.01 Morbid (severe) obesity due to excess calories; G47.33 Obstructive sleep apnea (adult) (pediatric); Z68.43 Body mass index [BMI] 50.0-59.9, adult; Z85.828 Personal history of other malignant neoplasm of skin; Z79.4 Long term (current) use of insulin; Z79.82 Long term (current) use of aspirin; Z89.429 Acquired absence of other toe(s), unspecified side; Z90.5 Acquired absence of kidney ==

== ENCOUNTER → 2020-12-20 | Outpatient (CLI) | payer OTHER | LOC: HYPER 08:27 | PROVIDERS: ATTEND Emergency Medicine | DX: E11.622 Type 2 diabetes mellitus with other skin ulcer (principal); L97.822 Non-pressure chronic ulcer of other part of left lower leg with fat layer exposed; L97.322 Non-pressure chronic ulcer of left ankle with fat layer exposed; L84 Corns and callosities; I87.2 Venous insufficiency (chronic) (peripheral); E11.51 Type 2 diabetes mellitus with diabetic peripheral angiopathy without gangrene; E11.40 Type 2 diabetes mellitus with diabetic neuropathy, unspecified; E11.22 Type 2 diabetes mellitus with diabetic chronic kidney disease; I13.2 Hypertensive heart and chronic kidney disease with heart failure and with stage 5 chronic kidney disease, or end stage renal disease; I50.9 Heart failure, unspecified; N18.4 Chronic kidney disease, stage 4 (severe); E78.5 Hyperlipidemia, unspecified; E66.01 Morbid (severe) obesity due to excess calories; G47.33 Obstructive sleep apnea (adult) (pediatric); Z68.43 Body mass index [BMI] 50.0-59.9, adult; Z85.828 Personal history of other malignant neoplasm of skin; Z79.4 Long term (current) use of insulin; Z79.82 Long term (current) use of aspirin; Z89.429 Acquired absence of other toe(s), unspecified side; Z90.5 Acquired absence of kidney ==

== ENCOUNTER → 2021-01-03 | Outpatient (CLI) | payer OTHER | LOC: HYPER 07:47 | PROVIDERS: ATTEND Emergency Medicine | DX: E11.622 Type 2 diabetes mellitus with other skin ulcer (principal); L97.822 Non-pressure chronic ulcer of other part of left lower leg with fat layer exposed; L97.322 Non-pressure chronic ulcer of left ankle with fat layer exposed; E11.621 Type 2 diabetes mellitus with foot ulcer; L97.522 Non-pressure chronic ulcer of other part of left foot with fat layer exposed; E11.40 Type 2 diabetes mellitus with diabetic neuropathy, unspecified; L89.893 Pressure ulcer of other site, stage 3; S80.812A Abrasion, left lower leg, initial encounter; I87.2 Venous insufficiency (chronic) (peripheral); R21 Rash and other nonspecific skin eruption; E11.51 Type 2 diabetes mellitus with diabetic peripheral angiopathy without gangrene; E11.22 Type 2 diabetes mellitus with diabetic chronic kidney disease; N18.4 Chronic kidney disease, stage 4 (severe); I13.0 Hypertensive heart and chronic kidney disease with heart failure and stage 1 through stage 4 chronic kidney disease, or unspecified chronic kidney disease; I50.9 Heart failure, unspecified; E78.5 Hyperlipidemia, unspecified; G47.33 Obstructive sleep apnea (adult) (pediatric); E66.01 Morbid (severe) obesity due to excess calories; Z68.43 Body mass index [BMI] 50.0-59.9, adult; Z79.4 Long term (current) use of insulin; Z85.528 Personal history of other malignant neoplasm of kidney; Z90.5 Acquired absence of kidney; Z89.429 Acquired absence of other toe(s), unspecified side; Z79.82 Long term (current) use of aspirin; Z79.899 Other long term (current) drug therapy; X58.XXXA Exposure to other specified factors, initial encounter; Y93.89 Activity, other specified; Y92.89 Other specified places as the place of occurrence of the external cause; Y99.8 Other external cause status ==

== ENCOUNTER → 2021-01-10 | Outpatient (CLI) | payer OTHER | LOC: HYPER 09:58 | PROVIDERS: ATTEND Emergency Medicine Emergency Medical Services | DX: E11.622 Type 2 diabetes mellitus with other skin ulcer (principal); L89.893 Pressure ulcer of other site, stage 3; L97.822 Non-pressure chronic ulcer of other part of left lower leg with fat layer exposed; L97.322 Non-pressure chronic ulcer of left ankle with fat layer exposed; E11.621 Type 2 diabetes mellitus with foot ulcer; L89.626 Pressure-induced deep tissue damage of left heel; L97.421 Non-pressure chronic ulcer of left heel and midfoot limited to breakdown of skin; L97.522 Non-pressure chronic ulcer of other part of left foot with fat layer exposed; S80.812D Abrasion, left lower leg, subsequent encounter; L84 Corns and callosities; R21 Rash and other nonspecific skin eruption; E11.40 Type 2 diabetes mellitus with diabetic neuropathy, unspecified; E11.51 Type 2 diabetes mellitus with diabetic peripheral angiopathy without gangrene; E11.22 Type 2 diabetes mellitus with diabetic chronic kidney disease; N18.4 Chronic kidney disease, stage 4 (severe); I13.0 Hypertensive heart and chronic kidney disease with heart failure and stage 1 through stage 4 chronic kidney disease, or unspecified chronic kidney disease; I50.9 Heart failure, unspecified; E66.01 Morbid (severe) obesity due to excess calories; E78.5 Hyperlipidemia, unspecified; G47.33 Obstructive sleep apnea (adult) (pediatric); I87.2 Venous insufficiency (chronic) (peripheral); Z68.43 Body mass index [BMI] 50.0-59.9, adult; Z79.4 Long term (current) use of insulin; Z85.528 Personal history of other malignant neoplasm of kidney; Z90.5 Acquired absence of kidney; Z89.429 Acquired absence of other toe(s), unspecified side; Z79.82 Long term (current) use of aspirin; X58.XXXD Exposure to other specified factors, subsequent encounter ==

== ENCOUNTER → 2021-02-05 | Outpatient (CLI) | payer OTHER | LOC: HYPER 08:12 | PROVIDERS: ATTEND Emergency Medicine | DX: E11.622 Type 2 diabetes mellitus with other skin ulcer (principal); L89.893 Pressure ulcer of other site, stage 3; L97.822 Non-pressure chronic ulcer of other part of left lower leg with fat layer exposed; L97.322 Non-pressure chronic ulcer of left ankle with fat layer exposed; E11.621 Type 2 diabetes mellitus with foot ulcer; L89.626 Pressure-induced deep tissue damage of left heel; L97.422 Non-pressure chronic ulcer of left heel and midfoot with fat layer exposed; L97.522 Non-pressure chronic ulcer of other part of left foot with fat layer exposed; S80.812D Abrasion, left lower leg, subsequent encounter; L84 Corns and callosities; R21 Rash and other nonspecific skin eruption; E11.40 Type 2 diabetes mellitus with diabetic neuropathy, unspecified; E11.51 Type 2 diabetes mellitus with diabetic peripheral angiopathy without gangrene; E11.22 Type 2 diabetes mellitus with diabetic chronic kidney disease; N18.4 Chronic kidney disease, stage 4 (severe); I13.0 Hypertensive heart and chronic kidney disease with heart failure and stage 1 through stage 4 chronic kidney disease, or unspecified chronic kidney disease; I50.9 Heart failure, unspecified; E66.01 Morbid (severe) obesity due to excess calories; E78.5 Hyperlipidemia, unspecified; G47.33 Obstructive sleep apnea (adult) (pediatric); I87.2 Venous insufficiency (chronic) (peripheral); Z68.43 Body mass index [BMI] 50.0-59.9, adult; Z79.4 Long term (current) use of insulin; Z85.528 Personal history of other malignant neoplasm of kidney; Z90.5 Acquired absence of kidney; Z89.429 Acquired absence of other toe(s), unspecified side; Z79.82 Long term (current) use of aspirin; X58.XXXD Exposure to other specified factors, subsequent encounter ==

== ENCOUNTER → 2021-02-19 | Outpatient (CLI) | payer OTHER | LOC: HYPER 08:21 | PROVIDERS: ATTEND Emergency Medicine | DX: E11.622 Type 2 diabetes mellitus with other skin ulcer (principal); L89.893 Pressure ulcer of other site, stage 3; L97.822 Non-pressure chronic ulcer of other part of left lower leg with fat layer exposed; L97.322 Non-pressure chronic ulcer of left ankle with fat layer exposed; E11.621 Type 2 diabetes mellitus with foot ulcer; L89.626 Pressure-induced deep tissue damage of left heel; L97.422 Non-pressure chronic ulcer of left heel and midfoot with fat layer exposed; L97.522 Non-pressure chronic ulcer of other part of left foot with fat layer exposed; I70.238 Atherosclerosis of native arteries of right leg with ulceration of other part of lower leg; L97.812 Non-pressure chronic ulcer of other part of right lower leg with fat layer exposed; I70.235 Atherosclerosis of native arteries of right leg with ulceration of other part of foot; L97.511 Non-pressure chronic ulcer of other part of right foot limited to breakdown of skin; S80.812D Abrasion, left lower leg, subsequent encounter; L84 Corns and callosities; R21 Rash and other nonspecific skin eruption; E11.40 Type 2 diabetes mellitus with diabetic neuropathy, unspecified; E11.51 Type 2 diabetes mellitus with diabetic peripheral angiopathy without gangrene; E11.22 Type 2 diabetes mellitus with diabetic chronic kidney disease; N18.4 Chronic kidney disease, stage 4 (severe); I13.0 Hypertensive heart and chronic kidney disease with heart failure and stage 1 through stage 4 chronic kidney disease, or unspecified chronic kidney disease; I50.9 Heart failure, unspecified; E66.01 Morbid (severe) obesity due to excess calories; E78.5 Hyperlipidemia, unspecified; G47.33 Obstructive sleep apnea (adult) (pediatric); I87.2 Venous insufficiency (chronic) (peripheral); Z68.43 Body mass index [BMI] 50.0-59.9, adult; Z79.4 Long term (current) use of insulin; Z85.528 Personal history of other malignant neoplasm of kidney; Z90.5 Acquired absence of kidney; Z89.429 Acquired absence of other toe(s), unspecified side; Z79.82 Long term (current) use of aspirin; X58.XXXD Exposure to other specified factors, subsequent encounter ==

== ENCOUNTER → 2021-03-06 | Outpatient (CLI) | payer OTHER | LOC: HYPER 08:06 | PROVIDERS: ATTEND Emergency Medicine | DX: E11.622 Type 2 diabetes mellitus with other skin ulcer (principal); L89.893 Pressure ulcer of other site, stage 3; L97.822 Non-pressure chronic ulcer of other part of left lower leg with fat layer exposed; L97.322 Non-pressure chronic ulcer of left ankle with fat layer exposed; I70.238 Atherosclerosis of native arteries of right leg with ulceration of other part of lower leg; L97.812 Non-pressure chronic ulcer of other part of right lower leg with fat layer exposed; E11.621 Type 2 diabetes mellitus with foot ulcer; L89.626 Pressure-induced deep tissue damage of left heel; L97.422 Non-pressure chronic ulcer of left heel and midfoot with fat layer exposed; L97.522 Non-pressure chronic ulcer of other part of left foot with fat layer exposed; S80.812D Abrasion, left lower leg, subsequent encounter; L84 Corns and callosities; R21 Rash and other nonspecific skin eruption; E11.40 Type 2 diabetes mellitus with diabetic neuropathy, unspecified; E11.51 Type 2 diabetes mellitus with diabetic peripheral angiopathy without gangrene; E11.22 Type 2 diabetes mellitus with diabetic chronic kidney disease; I13.0 Hypertensive heart and chronic kidney disease with heart failure and stage 1 through stage 4 chronic kidney disease, or unspecified chronic kidney disease; N18.4 Chronic kidney disease, stage 4 (severe); I50.9 Heart failure, unspecified; E66.01 Morbid (severe) obesity due to excess calories; E78.5 Hyperlipidemia, unspecified; G47.33 Obstructive sleep apnea (adult) (pediatric); I87.2 Venous insufficiency (chronic) (peripheral); Z68.43 Body mass index [BMI] 50.0-59.9, adult; Z79.4 Long term (current) use of insulin; Z85.528 Personal history of other malignant neoplasm of kidney; Z90.5 Acquired absence of kidney; Z89.429 Acquired absence of other toe(s), unspecified side; X58.XXXD Exposure to other specified factors, subsequent encounter ==

== ENCOUNTER → 2021-03-20 | Outpatient (CLI) | payer OTHER | LOC: HYPER 08:03 | PROVIDERS: ATTEND Emergency Medicine | DX: E11.622 Type 2 diabetes mellitus with other skin ulcer (principal); L97.822 Non-pressure chronic ulcer of other part of left lower leg with fat layer exposed; I70.238 Atherosclerosis of native arteries of right leg with ulceration of other part of lower leg; L97.812 Non-pressure chronic ulcer of other part of right lower leg with fat layer exposed; E11.621 Type 2 diabetes mellitus with foot ulcer; L89.626 Pressure-induced deep tissue damage of left heel; L97.422 Non-pressure chronic ulcer of left heel and midfoot with fat layer exposed; L89.893 Pressure ulcer of other site, stage 3; L97.522 Non-pressure chronic ulcer of other part of left foot with fat layer exposed; L97.322 Non-pressure chronic ulcer of left ankle with fat layer exposed; I87.2 Venous insufficiency (chronic) (peripheral); E11.51 Type 2 diabetes mellitus with diabetic peripheral angiopathy without gangrene; E11.40 Type 2 diabetes mellitus with diabetic neuropathy, unspecified; E11.22 Type 2 diabetes mellitus with diabetic chronic kidney disease; I13.0 Hypertensive heart and chronic kidney disease with heart failure and stage 1 through stage 4 chronic kidney disease, or unspecified chronic kidney disease; I50.9 Heart failure, unspecified; N18.4 Chronic kidney disease, stage 4 (severe); R21 Rash and other nonspecific skin eruption; L84 Corns and callosities; E78.5 Hyperlipidemia, unspecified; E66.01 Morbid (severe) obesity due to excess calories; G47.33 Obstructive sleep apnea (adult) (pediatric); R60.0 Localized edema; Z68.43 Body mass index [BMI] 50.0-59.9, adult; Z85.528 Personal history of other malignant neoplasm of kidney; Z79.82 Long term (current) use of aspirin; Z79.4 Long term (current) use of insulin; Z79.899 Other long term (current) drug therapy; Z90.5 Acquired absence of kidney; Z89.429 Acquired absence of other toe(s), unspecified side ==

== ENCOUNTER → 2021-04-10 | Outpatient (CLI) | payer OTHER | LOC: HYPER 08:02 | PROVIDERS: ATTEND Emergency Medicine | DX: E11.622 Type 2 diabetes mellitus with other skin ulcer (principal); I70.248 Atherosclerosis of native arteries of left leg with ulceration of other part of lower leg; L97.822 Non-pressure chronic ulcer of other part of left lower leg with fat layer exposed; I70.238 Atherosclerosis of native arteries of right leg with ulceration of other part of lower leg; L97.812 Non-pressure chronic ulcer of other part of right lower leg with fat layer exposed; E11.621 Type 2 diabetes mellitus with foot ulcer; L89.626 Pressure-induced deep tissue damage of left heel; L97.422 Non-pressure chronic ulcer of left heel and midfoot with fat layer exposed; L89.893 Pressure ulcer of other site, stage 3; L97.522 Non-pressure chronic ulcer of other part of left foot with fat layer exposed; L97.322 Non-pressure chronic ulcer of left ankle with fat layer exposed; I87.2 Venous insufficiency (chronic) (peripheral); E11.51 Type 2 diabetes mellitus with diabetic peripheral angiopathy without gangrene; E11.40 Type 2 diabetes mellitus with diabetic neuropathy, unspecified; E11.22 Type 2 diabetes mellitus with diabetic chronic kidney disease; I13.0 Hypertensive heart and chronic kidney disease with heart failure and stage 1 through stage 4 chronic kidney disease, or unspecified chronic kidney disease; I50.9 Heart failure, unspecified; N18.4 Chronic kidney disease, stage 4 (severe); R21 Rash and other nonspecific skin eruption; L84 Corns and callosities; E78.5 Hyperlipidemia, unspecified; E66.01 Morbid (severe) obesity due to excess calories; G47.33 Obstructive sleep apnea (adult) (pediatric); R60.0 Localized edema; Z68.43 Body mass index [BMI] 50.0-59.9, adult; Z85.528 Personal history of other malignant neoplasm of kidney; Z79.82 Long term (current) use of aspirin; Z79.4 Long term (current) use of insulin; Z90.5 Acquired absence of kidney; Z89.429 Acquired absence of other toe(s), unspecified side ==

== ENCOUNTER → 2021-04-24 | Outpatient (CLI) | payer OTHER | LOC: HYPER 08:50 | PROVIDERS: ATTEND Emergency Medicine | DX: E11.622 Type 2 diabetes mellitus with other skin ulcer (principal); L97.822 Non-pressure chronic ulcer of other part of left lower leg with fat layer exposed; I70.238 Atherosclerosis of native arteries of right leg with ulceration of other part of lower leg; L97.812 Non-pressure chronic ulcer of other part of right lower leg with fat layer exposed; E11.621 Type 2 diabetes mellitus with foot ulcer; L89.626 Pressure-induced deep tissue damage of left heel; L97.422 Non-pressure chronic ulcer of left heel and midfoot with fat layer exposed; L84 Corns and callosities; E11.51 Type 2 diabetes mellitus with diabetic peripheral angiopathy without gangrene; E11.40 Type 2 diabetes mellitus with diabetic neuropathy, unspecified; E11.22 Type 2 diabetes mellitus with diabetic chronic kidney disease; I13.0 Hypertensive heart and chronic kidney disease with heart failure and stage 1 through stage 4 chronic kidney disease, or unspecified chronic kidney disease; I50.9 Heart failure, unspecified; N18.4 Chronic kidney disease, stage 4 (severe); I87.2 Venous insufficiency (chronic) (peripheral); R21 Rash and other nonspecific skin eruption; E78.5 Hyperlipidemia, unspecified; E66.01 Morbid (severe) obesity due to excess calories; G47.33 Obstructive sleep apnea (adult) (pediatric); R60.0 Localized edema; Z68.43 Body mass index [BMI] 50.0-59.9, adult; Z85.528 Personal history of other malignant neoplasm of kidney; Z79.82 Long term (current) use of aspirin; Z79.4 Long term (current) use of insulin; Z90.5 Acquired absence of kidney; Z89.429 Acquired absence of other toe(s), unspecified side ==

== ENCOUNTER → 2021-05-08 | Outpatient (CLI) | payer OTHER | LOC: HYPER 13:06 | PROVIDERS: ATTEND Emergency Medicine | DX: E11.622 Type 2 diabetes mellitus with other skin ulcer (principal); I70.248 Atherosclerosis of native arteries of left leg with ulceration of other part of lower leg; L97.822 Non-pressure chronic ulcer of other part of left lower leg with fat layer exposed; I70.238 Atherosclerosis of native arteries of right leg with ulceration of other part of lower leg; L97.812 Non-pressure chronic ulcer of other part of right lower leg with fat layer exposed; E11.621 Type 2 diabetes mellitus with foot ulcer; L89.626 Pressure-induced deep tissue damage of left heel; L97.422 Non-pressure chronic ulcer of left heel and midfoot with fat layer exposed; L84 Corns and callosities; E11.51 Type 2 diabetes mellitus with diabetic peripheral angiopathy without gangrene; E11.40 Type 2 diabetes mellitus with diabetic neuropathy, unspecified; E11.22 Type 2 diabetes mellitus with diabetic chronic kidney disease; I13.0 Hypertensive heart and chronic kidney disease with heart failure and stage 1 through stage 4 chronic kidney disease, or unspecified chronic kidney disease; I50.9 Heart failure, unspecified; N18.4 Chronic kidney disease, stage 4 (severe); I87.2 Venous insufficiency (chronic) (peripheral); R21 Rash and other nonspecific skin eruption; E78.5 Hyperlipidemia, unspecified; E66.01 Morbid (severe) obesity due to excess calories; G47.33 Obstructive sleep apnea (adult) (pediatric); R60.0 Localized edema; Z68.43 Body mass index [BMI] 50.0-59.9, adult; Z85.528 Personal history of other malignant neoplasm of kidney; Z79.82 Long term (current) use of aspirin; Z79.4 Long term (current) use of insulin; Z90.5 Acquired absence of kidney; Z89.429 Acquired absence of other toe(s), unspecified side ==

== ENCOUNTER → 2021-05-22 | Outpatient (CLI) | payer OTHER | LOC: HYPER 08:44 | PROVIDERS: ATTEND Emergency Medicine | DX: E11.622 Type 2 diabetes mellitus with other skin ulcer (principal); I70.248 Atherosclerosis of native arteries of left leg with ulceration of other part of lower leg; L97.822 Non-pressure chronic ulcer of other part of left lower leg with fat layer exposed; I70.238 Atherosclerosis of native arteries of right leg with ulceration of other part of lower leg; L97.812 Non-pressure chronic ulcer of other part of right lower leg with fat layer exposed; E11.621 Type 2 diabetes mellitus with foot ulcer; L89.626 Pressure-induced deep tissue damage of left heel; L97.422 Non-pressure chronic ulcer of left heel and midfoot with fat layer exposed; L89.893 Pressure ulcer of other site, stage 3; L84 Corns and callosities; E11.51 Type 2 diabetes mellitus with diabetic peripheral angiopathy without gangrene; E11.40 Type 2 diabetes mellitus with diabetic neuropathy, unspecified; E11.22 Type 2 diabetes mellitus with diabetic chronic kidney disease; I13.0 Hypertensive heart and chronic kidney disease with heart failure and stage 1 through stage 4 chronic kidney disease, or unspecified chronic kidney disease; I50.9 Heart failure, unspecified; N18.4 Chronic kidney disease, stage 4 (severe); I87.2 Venous insufficiency (chronic) (peripheral); R21 Rash and other nonspecific skin eruption; E78.5 Hyperlipidemia, unspecified; E66.01 Morbid (severe) obesity due to excess calories; G47.33 Obstructive sleep apnea (adult) (pediatric); R60.0 Localized edema; Z68.43 Body mass index [BMI] 50.0-59.9, adult; Z85.828 Personal history of other malignant neoplasm of skin; Z79.82 Long term (current) use of aspirin; Z79.4 Long term (current) use of insulin; Z90.5 Acquired absence of kidney; Z89.429 Acquired absence of other toe(s), unspecified side ==

== ENCOUNTER → 2021-06-13 | Outpatient (CLI) | payer OTHER | LOC: HYPER 09:20 | PROVIDERS: ATTEND Emergency Medicine | DX: E11.622 Type 2 diabetes mellitus with other skin ulcer (principal); L97.822 Non-pressure chronic ulcer of other part of left lower leg with fat layer exposed; L97.812 Non-pressure chronic ulcer of other part of right lower leg with fat layer exposed; E11.621 Type 2 diabetes mellitus with foot ulcer; L89.626 Pressure-induced deep tissue damage of left heel; L97.422 Non-pressure chronic ulcer of left heel and midfoot with fat layer exposed; L89.893 Pressure ulcer of other site, stage 3; L84 Corns and callosities; E11.51 Type 2 diabetes mellitus with diabetic peripheral angiopathy without gangrene; E11.40 Type 2 diabetes mellitus with diabetic neuropathy, unspecified; E11.22 Type 2 diabetes mellitus with diabetic chronic kidney disease; I13.0 Hypertensive heart and chronic kidney disease with heart failure and stage 1 through stage 4 chronic kidney disease, or unspecified chronic kidney disease; I50.9 Heart failure, unspecified; N18.4 Chronic kidney disease, stage 4 (severe); I87.2 Venous insufficiency (chronic) (peripheral); R21 Rash and other nonspecific skin eruption; E78.5 Hyperlipidemia, unspecified; E66.01 Morbid (severe) obesity due to excess calories; G47.33 Obstructive sleep apnea (adult) (pediatric); R60.0 Localized edema; Z68.43 Body mass index [BMI] 50.0-59.9, adult; Z85.828 Personal history of other malignant neoplasm of skin; Z79.82 Long term (current) use of aspirin; Z79.4 Long term (current) use of insulin; Z90.5 Acquired absence of kidney; Z89.429 Acquired absence of other toe(s), unspecified side ==

== ENCOUNTER → 2021-07-01 | Outpatient (CLI) | payer OTHER | LOC: HYPER 09:40 | PROVIDERS: ATTEND Emergency Medicine | DX: E11.622 Type 2 diabetes mellitus with other skin ulcer (principal); L97.822 Non-pressure chronic ulcer of other part of left lower leg with fat layer exposed; L97.812 Non-pressure chronic ulcer of other part of right lower leg with fat layer exposed; L89.893 Pressure ulcer of other site, stage 3; L89.626 Pressure-induced deep tissue damage of left heel; E11.621 Type 2 diabetes mellitus with foot ulcer; L97.421 Non-pressure chronic ulcer of left heel and midfoot limited to breakdown of skin; L97.521 Non-pressure chronic ulcer of other part of left foot limited to breakdown of skin; S90.512A Abrasion, left ankle, initial encounter; I87.2 Venous insufficiency (chronic) (peripheral); E11.51 Type 2 diabetes mellitus with diabetic peripheral angiopathy without gangrene; E11.40 Type 2 diabetes mellitus with diabetic neuropathy, unspecified; R21 Rash and other nonspecific skin eruption; R60.0 Localized edema; E11.22 Type 2 diabetes mellitus with diabetic chronic kidney disease; I13.2 Hypertensive heart and chronic kidney disease with heart failure and with stage 5 chronic kidney disease, or end stage renal disease; N18.4 Chronic kidney disease, stage 4 (severe); I50.9 Heart failure, unspecified; E78.5 Hyperlipidemia, unspecified; G47.33 Obstructive sleep apnea (adult) (pediatric); E66.01 Morbid (severe) obesity due to excess calories; Z79.4 Long term (current) use of insulin; Z68.43 Body mass index [BMI] 50.0-59.9, adult; Z85.528 Personal history of other malignant neoplasm of kidney; Z79.82 Long term (current) use of aspirin; Z79.899 Other long term (current) drug therapy; Z90.5 Acquired absence of kidney; Z89.429 Acquired absence of other toe(s), unspecified side; X58.XXXA Exposure to other specified factors, initial encounter; Y93.89 Activity, other specified; Y92.89 Other specified places as the place of occurrence of the external cause; Y99.8 Other external cause status ==

== ENCOUNTER → 2021-07-15 | Outpatient (CLI) | payer OTHER | LOC: HYPER 14:13 | PROVIDERS: ATTEND Emergency Medicine | DX: E11.622 Type 2 diabetes mellitus with other skin ulcer (principal); L97.822 Non-pressure chronic ulcer of other part of left lower leg with fat layer exposed; L97.812 Non-pressure chronic ulcer of other part of right lower leg with fat layer exposed; E11.621 Type 2 diabetes mellitus with foot ulcer; L89.626 Pressure-induced deep tissue damage of left heel; L97.421 Non-pressure chronic ulcer of left heel and midfoot limited to breakdown of skin; L89.893 Pressure ulcer of other site, stage 3; L97.521 Non-pressure chronic ulcer of other part of left foot limited to breakdown of skin; E11.51 Type 2 diabetes mellitus with diabetic peripheral angiopathy without gangrene; I87.2 Venous insufficiency (chronic) (peripheral); E11.40 Type 2 diabetes mellitus with diabetic neuropathy, unspecified; R21 Rash and other nonspecific skin eruption; R60.0 Localized edema; E11.22 Type 2 diabetes mellitus with diabetic chronic kidney disease; I13.0 Hypertensive heart and chronic kidney disease with heart failure and stage 1 through stage 4 chronic kidney disease, or unspecified chronic kidney disease; I50.9 Heart failure, unspecified; N18.4 Chronic kidney disease, stage 4 (severe); E78.5 Hyperlipidemia, unspecified; G47.33 Obstructive sleep apnea (adult) (pediatric); E66.01 Morbid (severe) obesity due to excess calories; Z68.43 Body mass index [BMI] 50.0-59.9, adult; Z85.528 Personal history of other malignant neoplasm of kidney; Z79.4 Long term (current) use of insulin; Z79.82 Long term (current) use of aspirin; Z79.899 Other long term (current) drug therapy; Z90.5 Acquired absence of kidney; Z89.429 Acquired absence of other toe(s), unspecified side ==

== ENCOUNTER → 2021-07-29 | Outpatient (CLI) | payer OTHER | LOC: HYPER 11:01 | PROVIDERS: ATTEND Emergency Medicine | DX: E11.622 Type 2 diabetes mellitus with other skin ulcer (principal); I87.313 Chronic venous hypertension (idiopathic) with ulcer of bilateral lower extremity; L97.822 Non-pressure chronic ulcer of other part of left lower leg with fat layer exposed; L97.812 Non-pressure chronic ulcer of other part of right lower leg with fat layer exposed; E11.51 Type 2 diabetes mellitus with diabetic peripheral angiopathy without gangrene; E11.40 Type 2 diabetes mellitus with diabetic neuropathy, unspecified; E11.22 Type 2 diabetes mellitus with diabetic chronic kidney disease; I13.0 Hypertensive heart and chronic kidney disease with heart failure and stage 1 through stage 4 chronic kidney disease, or unspecified chronic kidney disease; I50.9 Heart failure, unspecified; N18.4 Chronic kidney disease, stage 4 (severe); R21 Rash and other nonspecific skin eruption; R60.0 Localized edema; E78.5 Hyperlipidemia, unspecified; G47.33 Obstructive sleep apnea (adult) (pediatric); E66.01 Morbid (severe) obesity due to excess calories; Z68.43 Body mass index [BMI] 50.0-59.9, adult; Z85.528 Personal history of other malignant neoplasm of kidney; Z79.4 Long term (current) use of insulin; Z79.82 Long term (current) use of aspirin; Z79.899 Other long term (current) drug therapy; Z90.5 Acquired absence of kidney; Z89.429 Acquired absence of other toe(s), unspecified side ==

== ENCOUNTER → 2021-08-12 | Outpatient (CLI) | payer OTHER | LOC: HYPER 08:58 | PROVIDERS: ATTEND Emergency Medicine | DX: E11.622 Type 2 diabetes mellitus with other skin ulcer (principal); I87.312 Chronic venous hypertension (idiopathic) with ulcer of left lower extremity; L97.822 Non-pressure chronic ulcer of other part of left lower leg with fat layer exposed; L97.812 Non-pressure chronic ulcer of other part of right lower leg with fat layer exposed; E11.621 Type 2 diabetes mellitus with foot ulcer; L97.521 Non-pressure chronic ulcer of other part of left foot limited to breakdown of skin; E11.40 Type 2 diabetes mellitus with diabetic neuropathy, unspecified; E11.51 Type 2 diabetes mellitus with diabetic peripheral angiopathy without gangrene; E11.22 Type 2 diabetes mellitus with diabetic chronic kidney disease; I13.0 Hypertensive heart and chronic kidney disease with heart failure and stage 1 through stage 4 chronic kidney disease, or unspecified chronic kidney disease; I50.9 Heart failure, unspecified; N18.4 Chronic kidney disease, stage 4 (severe); E78.5 Hyperlipidemia, unspecified; G47.33 Obstructive sleep apnea (adult) (pediatric); E66.01 Morbid (severe) obesity due to excess calories; Z68.43 Body mass index [BMI] 50.0-59.9, adult; Z79.4 Long term (current) use of insulin; Z79.82 Long term (current) use of aspirin; Z79.899 Other long term (current) drug therapy; Z90.5 Acquired absence of kidney; Z89.429 Acquired absence of other toe(s), unspecified side ==

== ENCOUNTER → 2021-08-26 | Outpatient (CLI) | payer OTHER | LOC: HYPER 13:25 | PROVIDERS: ATTEND Emergency Medicine | DX: E11.622 Type 2 diabetes mellitus with other skin ulcer (principal); I87.312 Chronic venous hypertension (idiopathic) with ulcer of left lower extremity; L97.822 Non-pressure chronic ulcer of other part of left lower leg with fat layer exposed; L97.812 Non-pressure chronic ulcer of other part of right lower leg with fat layer exposed; E11.621 Type 2 diabetes mellitus with foot ulcer; L97.521 Non-pressure chronic ulcer of other part of left foot limited to breakdown of skin; S91.105A Unspecified open wound of left lesser toe(s) without damage to nail, initial encounter; E11.40 Type 2 diabetes mellitus with diabetic neuropathy, unspecified; E11.51 Type 2 diabetes mellitus with diabetic peripheral angiopathy without gangrene; E11.22 Type 2 diabetes mellitus with diabetic chronic kidney disease; I13.0 Hypertensive heart and chronic kidney disease with heart failure and stage 1 through stage 4 chronic kidney disease, or unspecified chronic kidney disease; I50.9 Heart failure, unspecified; N18.4 Chronic kidney disease, stage 4 (severe); E78.5 Hyperlipidemia, unspecified; G47.33 Obstructive sleep apnea (adult) (pediatric); E66.01 Morbid (severe) obesity due to excess calories; Z68.43 Body mass index [BMI] 50.0-59.9, adult; Z79.4 Long term (current) use of insulin; Z79.82 Long term (current) use of aspirin; Z90.5 Acquired absence of kidney; Z89.429 Acquired absence of other toe(s), unspecified side; X58.XXXA Exposure to other specified factors, initial encounter; Y93.89 Activity, other specified; Y92.89 Other specified places as the place of occurrence of the external cause; Y99.8 Other external cause status ==

== ENCOUNTER → 2021-09-09 | Outpatient (CLI) | payer OTHER | LOC: HYPER 11:29 | PROVIDERS: ATTEND Emergency Medicine | DX: E11.622 Type 2 diabetes mellitus with other skin ulcer (principal); I87.313 Chronic venous hypertension (idiopathic) with ulcer of bilateral lower extremity; L97.822 Non-pressure chronic ulcer of other part of left lower leg with fat layer exposed; L97.812 Non-pressure chronic ulcer of other part of right lower leg with fat layer exposed; E11.621 Type 2 diabetes mellitus with foot ulcer; L97.521 Non-pressure chronic ulcer of other part of left foot limited to breakdown of skin; S91.105D Unspecified open wound of left lesser toe(s) without damage to nail, subsequent encounter; E11.40 Type 2 diabetes mellitus with diabetic neuropathy, unspecified; E11.51 Type 2 diabetes mellitus with diabetic peripheral angiopathy without gangrene; E11.22 Type 2 diabetes mellitus with diabetic chronic kidney disease; I13.0 Hypertensive heart and chronic kidney disease with heart failure and stage 1 through stage 4 chronic kidney disease, or unspecified chronic kidney disease; I50.9 Heart failure, unspecified; N18.4 Chronic kidney disease, stage 4 (severe); E78.5 Hyperlipidemia, unspecified; G47.33 Obstructive sleep apnea (adult) (pediatric); E66.01 Morbid (severe) obesity due to excess calories; Z68.43 Body mass index [BMI] 50.0-59.9, adult; Z79.4 Long term (current) use of insulin; Z79.82 Long term (current) use of aspirin; Z90.5 Acquired absence of kidney; Z89.429 Acquired absence of other toe(s), unspecified side; X58.XXXD Exposure to other specified factors, subsequent encounter ==

== ENCOUNTER → 2021-09-24 | Outpatient (CLI) | payer OTHER | LOC: HYPER 11:35 | PROVIDERS: ATTEND Emergency Medicine | DX: I87.312 Chronic venous hypertension (idiopathic) with ulcer of left lower extremity (principal); E11.622 Type 2 diabetes mellitus with other skin ulcer; L97.822 Non-pressure chronic ulcer of other part of left lower leg with fat layer exposed; E11.51 Type 2 diabetes mellitus with diabetic peripheral angiopathy without gangrene; E11.40 Type 2 diabetes mellitus with diabetic neuropathy, unspecified; E11.22 Type 2 diabetes mellitus with diabetic chronic kidney disease; I13.0 Hypertensive heart and chronic kidney disease with heart failure and stage 1 through stage 4 chronic kidney disease, or unspecified chronic kidney disease; I50.9 Heart failure, unspecified; N18.4 Chronic kidney disease, stage 4 (severe); R60.0 Localized edema; E78.5 Hyperlipidemia, unspecified; G47.33 Obstructive sleep apnea (adult) (pediatric); E66.01 Morbid (severe) obesity due to excess calories; Z68.43 Body mass index [BMI] 50.0-59.9, adult; Z79.4 Long term (current) use of insulin; Z85.528 Personal history of other malignant neoplasm of kidney; Z79.82 Long term (current) use of aspirin; Z79.899 Other long term (current) drug therapy; Z90.5 Acquired absence of kidney ==

== ENCOUNTER → 2021-09-27 | Outpatient (CLI) | payer OTHER | LOC: SJCVCIMAG 09-25 16:09 | PROVIDERS: ATTEND Emergency Medicine | DX: I70.203 Unspecified atherosclerosis of native arteries of extremities, bilateral legs (principal); L97.921 Non-pressure chronic ulcer of unspecified part of left lower leg limited to breakdown of skin; L97.818 Non-pressure chronic ulcer of other part of right lower leg with other specified severity; L97.828 Non-pressure chronic ulcer of other part of left lower leg with other specified severity ==